=== PATIENT | female | born 1960 | race Caucasian/White ===

== ENCOUNTER 2016-07-09 14:49 | Emergency (ER) | payer SELFPAY ==
[~2016-07-09] VITALS: Ht 162.6 cm; Wt 75.0 kg
[~2016-07-09 14:49] MED LIST: LEVA500T PO; LISI10TA3 PO; PRED20 PO; VENTAER INH
[2016-07-09 14:51] VITALS: BP 135/91; PULSE 90; RESP 16; TEMP 97.7; O2SAT 98
--- NOTE | 2016-07-09 16:40 | RADRPT ---
EXAM DATE/TIME: 07/09/2016 16:20 [facility] COMPARISON: CHEST PA & LAT, May 16, 2016, 14:45. INDICATIONS : Chest pains, SOB with a productive cough x 7 days. MEDICAL HISTORY : Chronic obstructive pulmonary disease. SURGICAL HISTORY : Lung Biopsy ENCOUNTER: Initial ACUITY: 1 day PAIN SCORE: 0/10 LOCATION: Bilateral chest FINDINGS: A single view of the chest demonstrates the lungs to be symmetrically aerated without evidence of mas s, infiltrate or effusion. The cardiomediastinal contours are unremarkable. Osseous structures are intact. There is an old, healed fracture right posterior seventh rib. CONCLUSION: 1. No acute cardiopulmonary findings. Chaparro Pulliam MD on July 09, 2016 at 16:37 Board Certified Radiologist. This report was verified electronically.
[2016-07-09 16:52] LABS: AUTOMATED NEUTROPHIL # 4.5 TH/MM3 (1.8-7.7); BASOPHIL # 0.1 TH/MM3 (0-0.2); BASOPHIL % 0.9 % (0.0-2.0); EOSINOPHIL # 0.2 TH/MM3 (0-0.4); EOSINOPHIL % 3.4 % (0.0-4.0); HEMATOCRIT 35.1 % (35.0-46.0); HEMO FLAGS DIFF FINAL; LYMPH % 20.7 % (9.0-44.0); LYMPHOCYTE # 1.4 TH/MM3 (1.0-4.8); MEAN CELL VOLUME 80.2 FL (80.0-100.0); MEAN CORPUSCULAR HGB CONC 33.7 % (32.0-36.0); MONO % 8.2 % (0.0-8.0); NEUT % 66.8 % (16.0-70.0); PLATELET COUNT 258 TH/MM3 (150-450); RED BLOOD COUNT 4.37 MIL/MM3 (4.00-5.30); RED CELL DISTRIBUTION WIDTH 15.5 % (11.6-17.2); WHITE BLOOD COUNT 6.8 TH/MM3 (4.0-11.0)
[2016-07-09 17:16] LABS: ANION GAP 7 MEQ/L (5-15); BICARBONATE 26.3 MEQ/L (21.0-32.0); BLOOD UREA NITROGEN 10 MG/DL (7-18); CHLORIDE 105 MEQ/L (98-107); GLOMERULAR FILTRATION RATE 55 ML/MIN (>89); POTASSIUM 3.8 MEQ/L (3.5-5.1); SODIUM (NA) 138 MEQ/L (136-145)
[2016-07-09 17:20] LABS: CREATINE KINASE 180 U/L (26-192)
[2016-07-09 17:33] LABS: CKMB 1.6 NG/ML (0.5-3.6)
--- NOTE | 2016-07-10 15:33 | EKG ---
Date Performed: 07/09/2016 Time Performed: 15:45:13 PTAGE: 55 years EKG: Sinus rhythm BORDERLINE LEFT AXIS DEVIATION NONSPECIFIC T-WAVE ABNORMALITY WHEN COMPARED TO PRIOR TRACING PATIENT IS NO LONGER TACHYCARDIC. BORDERLINE ECG PREVIOUS TRACING : 05/16/2016 13.45 DOCTOR: Merary Brand Interpretating Date/Time 07/10/2016 15:31:52
== END 2016-07-09 17:30 | disposition left against medical advice (07) ==
LOC: NED 14:49
DX: R07.89 Other chest pain (principal); R06.02 Shortness of breath; Z53.21 Procedure and treatment not carried out due to patient leaving prior to being seen by health care provider
CPT/HCPCS: 71010; 80048; 82550; 82552; 84484; 85025; 93005; 99281

== ENCOUNTER 2016-08-30 12:06 | Emergency (ER) | payer SELFPAY ==
[~2016-08-30] VITALS: Ht 160 cm; Wt 72.0 kg
[2016-08-30 12:08] VITALS: BP 138/90; PULSE 118; RESP 24; TEMP 98; O2SAT 94
[2016-08-30] MEDS ORDERED: SODIUM CHLOR 0.9% 1000 ML INJ 1,000 ML IV SCH (12:35)
[2016-08-30] MEDS ORDERED: TOPR25TA PO ×3 (12:37→15:14)
[2016-08-30] MEDS ORDERED: ONDANSETRON HCL 4 MG/2 ML VIAL IVP ONE (12:45)
[2016-08-30] MEDS ORDERED: methylPREDNISolone SOD SUCC 125 MG/2 ML VIAL IVP ONE (12:45)
[2016-08-30] MEDS ORDERED: KETOROLAC TROMETHAMINE 30 MG/ML (IVP) VIAL IVP ONE (12:45)
[2016-08-30] MEDS ORDERED: RESP: ALBUTEROL 2.5 MG/3 ML NEB (SCH) INH ONE (12:45)
--- NOTE | 2016-08-30 13:19 | RADRPT ---
EXAM DATE/TIME: 08/30/2016 13:00 [facility] COMPARISON: CHEST SINGLE AP, July 09, 2016, 16:20. INDICATIONS : Short of Breath, Chest Pain. MEDICAL HISTORY : Chronic obstructive pulmonary disease. SURGICAL HISTORY : Bilateral Lung Biopsy. ENCOUNTER: Initial ACUITY: 2 days PAIN SCORE: 9/10 LOCATION: Bilateral chest FINDINGS: A single view of the chest demonstrates the lungs to be symmetrically aerated without evidence of mas s, infiltrate or effusion. The cardiomediastinal contours are unremarkable. Osseous structures are intact. CONCLUSION: No evidence of acute cardiopulmonary disease. Deon Celaya MD on August 30, 2016 at 13:18 Board Certified Radiologist. This report was verified electronically.
--- NOTE | 2016-08-30 13:24 | PD ---
HPI Chief Complaint: Chest Pain Time Seen by Provider: 13:20 Travel History International Travel<30 days: No Contact w/Intl Traveler<30days: No History of Present Illness HPI 55-year-old female that presents to the ED for evaluation of multiple complaints. Per patient her complaint is that she has some left-sided chest pain, shortness of breath, cough and runny nose as well as flank pain from her "kidneys " any urinary symptoms. Patient has a chronic history of COPD. Per patient she's been using her inhalers with minimal relief. The patient was getting her was that her chest discomfort was more severe than usual. She denies any sick contacts but states that she herself feels weak and tired. Per patient she also has a headache from the coughing. Cough is productive. She reports that she isn't having back pain for the past 2 days which gets worse when she coughs but she believes that she might have a urinary tract infection as she is urinating more than usual. Some dysuria. She states that the pain on the back is 7 out of 10. The pain in the chest is 8 out of 10. Pain on the head is 8 out of 10 and feels like a dull headache. She states that she did a brain tumor before coming. She denies any recent travel. No recent injury. Takes no control. Has not seen anybody for this. Denies any nausea or vomiting. No abdominal pain. No bowel movement issues. PFSH Past Medical History Hx Anticoagulant Therapy: Yes (ASA) Asthma: Yes Anxiety: Yes Heart Rhythm Problems: Yes (HEART MURMUR) Cancer: No Cardiac Catheterization: No Cardiovascular Problems: Yes High Cholesterol: Yes Chest Pain: Yes Congestive Heart Failure: No COPD: Yes Diabetes: No Diminished Hearing: No Endocrine: No Gastrointestinal Disorders: Yes GERD: Yes Hypertension: Yes Implanted Vascular Access Dvce: No Musculoskeletal: Yes Neurologic: No Reproductive: No Respiratory: Yes (COPD) Pneumonia: Yes Influenza Vaccination: No ?: Not Menopausal: Yes : 3 Para: 3 Tubal Ligation: Yes Past Surgical History Coronary Artery Bypass Graft: No Gynecologic Surgery: Yes (TUBAL LIGATION) Other Surgery: Yes (BRONCH WASHING AND LUNG BIOPSY) Social History Alcohol Use: Yes (Rarely) Tobacco Use: No Substance Use: No Allergies-Medications (Allergen,Severity, Reaction): Coded Allergies: Codeine (Verified Allergy, Severe, Nausea/Vomiting, 11/12/16) Reported Meds & Prescriptions Reported Meds & Active Scripts Active Cipro (Ciprofloxacin HCl) 500 Mg Tab 500 Mg PO BID 10 Days Prednisone 20 Mg Tab 20 Mg PO BID Ventolin Hfa 18 GM Inh (Albuterol Sulfate) 90 Mcg/Act Aer 2 Puff INH Q4-6H PRN Prednisone 20 Mg Tab 40 Mg PO DAILY 5 Days Review of Systems General / Constitutional: Positive: Chills, No: Fever, Weight Gain, Weight Loss, Other Eyes: No: Diploplia, Blurred Vision, Photophobia, Drainage, Redness, Foreign Body Sensation, Pain, Tearing, Blind Spots, Visual changes, Blindness, Other HENT: Positive: Headaches, Rhinitis, Congestion, No: Vertigo, Lightheadedness , Sore Throat, Rhinorrhea, Nosebleed, Neck Stiffness, Neck Pain, Masses, Gingival Bleeding, Dental Difficulties, Ear Discharge, Earache, Other Cardiovascular: Positive: Chest Pain or Discomfort, No: Palpitations, Irregular Rhythm, Tachycardia, Diaphoresis, Syncope, Dyspnea on exertion, Varicosities, Edema, Cyanosis, Varicosities, Phlebitis, Claudication, Other Respiratory: Positive: Cough, Shortness of Breath, Wheezing, No: Sneezing, Orthopnea, Hemoptysis, Stridor, Night Sweats, Pleuritic Pain, Other Gastrointestinal: No: Nausea, Vomiting, Diarrhea, Abdominal Pain, Hematemesis, Hematochezia, Constipation, Changes in Bowel Habits, Indigestion, Dysphagia, Loss of Appetite, Other Genitourinary: Positive: Urgency, Frequency, Flank Pain, No: Dysuria, Nocturia , Hematuria, Decreased Urinary Output, Oliguria, Hesitancy, Dribbling, Incontinence, Pelvic Pain, Dyspareunia, Discharge, Dysmenorrhea, Menorrhagia, Metorrhagia, Vaginal Bleeding, Other Musculoskeletal: Positive: Pain, No: Myalgias, Arthralgias, Limited ROM, Weakness, Cramping, Edema, Atrophy, Other Skin: No Rash, No Itching, No Dryness, No Lumps, No Hives, No Change in Pigmentation, No Change in nails, No Alopecia, No Lesions, No Breast Lumps, No Breast Tenderness, No Breast Swelling, No Other Neurologic: No: Weakness, Dizziness, Syncope, Focal Abnormalities, Coordination Problem, Tremor, Ataxia, Headache, Change in Mentation, Slurred Speech, Paresthesia, Incontinence, Seizures, Sensory Disturbance, Other Psychiatric: No: Anxiety, Depression, Suicidal Ideations, Disorder of Thought, Mood Disorder, Substance Abuse, Homicidal Ideation, Other Endocrine: No: Heat Intolerance, Cold Intolerance, Polyuria, Polydipsia, Other Hematologic/Lymphatic: No: Easy Bruising, Lymph Node Enlargement, Other Physical Exam Narrative GENERAL: SKIN: Warm and dry. HEAD: Atraumatic. Normocephalic. EYES: Pupils equal and round 4 mm reactive to light and accommodation. No scleral icterus. No injection or drainage. ENT: No nasal bleeding or discharge. Mucous membranes pink and moist. Tongue is midline. No uvula deviation. No cervical lymphadenopathy noted. No meningeal signs noted. Nostrils are patent bilaterally. Clear mucus noted in the nostrils. No sinus pain noted. TMs are clear with no sign of infection or perforation. No mastoid tenderness. NECK: Trachea midline. No JVD. CARDIOVASCULAR: Regular rate and rhythm. No murmurs, S3, S4. RESPIRATORY: No accessory muscle use. Clear to auscultation. Breath sounds equal bilaterally. GASTROINTESTINAL: Abdomen soft, non-tender, nondistended. Hepatic and splenic margins not palpable. MUSCULOSKELETAL: Extremities without clubbing, cyanosis, or edema. No obvious deformities. Full range of motion of the upper and lower extremities bilaterally with no pain. Ambulatory. No obvious CVA tenderness. NEUROLOGICAL: Awake and alert. No obvious cranial nerve deficits. Motor grossly within normal limits. Five out of 5 muscle strength in the arms and legs. Normal speech. PSYCHIATRIC: Appropriate mood and affect; insight and judgment normal. Data Data Last Documented VS Vital Signs Date Time Temp Pulse Resp B/P Pulse Ox O2 Delivery O2 Flow Rate FiO2 08/30/16 12:08 98.0 118 24 138/90 94 Room Air Orders Electrocardiogram (08/30/16 ) Electrocardiogram (08/30/16 12:35) Complete Blood Count With Diff (08/30/16 12:35) Comprehensive Metabolic Panel (08/30/16 12:35) Ckmb (Isoenzyme) Profile (08/30/16 12:35) Troponin I (08/30/16 12:35) Blood Culture (08/30/16 12:35) Lipase (08/30/16 12:35) Urinalysis - C+S If Indicated (08/30/16 12:35) Thyroid Stimulating Hormone (08/30/16 12:35) Influenzae A/B Antigen (08/30/16 12:35) Chest, Single Ap (08/30/16 12:35) Iv Access Insert/Monitor (08/30/16 12:35) Ecg Monitoring (08/30/16 12:35) Oximetry (08/30/16 12:35) Ondansetron Inj (Zofran Inj) (08/30/16 12:45) Sodium Chlor 0.9% 1000 Ml Inj (Ns 1000 M (08/30/16 12:35) Ketorolac Inj (Toradol Inj) (08/30/16 12:45) Methylprednisolone So Succ Inj (Solumedr (08/30/16 12:45) Albuterol Neb (Albuterol Neb) (08/30/16 12:45) Urine Culture (08/30/16 13:07) Ceftriaxone Inj (Rocephin Inj) (08/30/16 14:00) CKMB (08/30/16 12:45) CKMB% (08/30/16 12:45) Aspirin (Aspirin) (08/30/16 14:30) Labs Laboratory Tests Test 08/30/16 08/30/16 12:45 13:07 White Blood Count 10.4 TH/MM3 Red Blood Count 4.47 MIL/MM3 Hemoglobin 12.0 GM/DL Hematocrit 36.0 % Mean Corpuscular Volume 80.5 FL Mean Corpuscular Hemoglobin 26.8 PG Mean Corpuscular Hemoglobin 33.3 % Concent Red Cell Distribution Width 15.5 % Platelet Count 253 TH/MM3 Mean Platelet Volume 9.1 FL Neutrophils (%) (Auto) 73.7 % Lymphocytes (%) (Auto) 13.7 % Monocytes (%) (Auto) 11.6 % Eosinophils (%) (Auto) 0.7 % Basophils (%) (Auto) 0.3 % Neutrophils # (Auto) 7.7 TH/MM3 Lymphocytes # (Auto) 1.4 TH/MM3 Monocytes # (Auto) 1.2 TH/MM3 Eosinophils # (Auto) 0.1 TH/MM3 Basophils # (Auto) 0.0 TH/MM3 CBC Comment DIFF FINAL Differential Comment Sodium Level 138 MEQ/L Potassium Level 4.1 MEQ/L Chloride Level 103 MEQ/L Carbon Dioxide Level 26.1 MEQ/L Anion Gap 9 MEQ/L Blood Urea Nitrogen 13 MG/DL Creatinine 1.29 MG/DL Estimat Glomerular Filtration 43 ML/MIN Rate Random Glucose 98 MG/DL Calcium Level 8.7 MG/DL Total Bilirubin 0.4 MG/DL Aspartate Amino Transf 46 U/L (AST/SGOT) Alanine Aminotransferase 56 U/L (ALT/SGPT) Alkaline Phosphatase 135 U/L Total Creatine Kinase 101 U/L Creatine Kinase MB LESS THAN 0.5 NG/ML Troponin I LESS THAN 0.02 NG/ML Total Protein 8.6 GM/DL Albumin 3.0 GM/DL Lipase 119 U/L Thyroid Stimulating Hormone 0.608 uIU/ML 3rd Gen Urine Color DARK-BROWN Urine Turbidity HAZY Urine pH 7.5 Urine Specific [place] 1.012 Urine Protein 30 mg/dL Urine Glucose (UA) NEG mg/dL Urine Ketones NEG mg/dL Urine Occult Blood NEG Urine Nitrite POS Urine Bilirubin NEG Urine Urobilinogen 2.0 MG/DL Urine Leukocyte Esterase MOD Urine RBC 2 /hpf Urine WBC 27 /hpf Urine Squamous Epithelial 2 /hpf Cells Urine Bacteria MANY /hpf Microscopic Urinalysis Comment CULTURE INDICATED MDM Medical Decision Making Medical Screen Exam Complete: Yes Emergency Medical Condition: Yes Medical Record Reviewed: Yes Interpretation(s) CBC & BMP Diagram 08/30/16 12:45 LFT slightly elevated lipase within normal limits. Chest x-ray showed no sign of pneumonia or mass. EKG shows sinus tachycardic rhythm with no sign of acute ischemia read by me and attending. UA shows signs of UTI with nitrates, leukocytes trace and WBCs. Differential Diagnosis COPD exacerbation versus chest pain versus bronchitis versus URI versus UTI versus dehydration versus pneumonia versus influenza Narrative Course 55-year-old female that presents to the ED for evaluation of chest pain, shortness of breath, flank pain and possible UTI. Patient was properly examined and was found to have signs and symptoms of unclear etiology. Patient does have a history of COPD exacerbation. Previous bacteremia. At this time we 'll do labs and imaging. Patient was given breathing treatment as well as Toradol and fluids IV. Labs and imaging showed no sign of acute distress. Patient did have a UTI on the urine. Chest x-ray and shortness of pneumonia. Troponin and EKG were essentially unremarkable. Patient does have a stress test done about 5 months ago in April of last year which was negative. patient was evaluated by my attending Dr Iyer who evaluated the patient and recommends chest pain center admission secondary to her chest discomfort and risk factors, including age, HTN and noncompliance. Patient still tachycardic likely secondary to albuterol. Patient told of this and does not want to be admitted, she rather go home. She understands that if anything worsens she is to come back. AMA: The risks of leaving against medical advice without further evaluation treatment were discussed with the patient. These risks include cardiac dysfunction, cardiac dysrhythmia, possible heart attack, possible stroke or . The patient indicated understanding of these risks and appeared to have the capacity to make this decision. Patient found to have UTI. She was given ceftriaxone. As she does have a UTI I will treat this and her exacerbation. Given cipro, prednisone and albuterol and refill of her BP med. She undertands reasons to come back. See ED if worst. Procedures EKG Prior to Arrival: No Sepsis Criteria SIRS Criteria (2 or more): Heart rate over 90 Diagnosis Primary Impression: Chest pain Qualified Code: R07.9 - Chest pain, unspecified type Additional Impressions: UTI (urinary tract infection) Qualified Code: N30.00 - Acute cystitis without hematuria COPD (chronic obstructive pulmonary disease) Qualified Code: J42 - Chronic bronchitis, unspecified chronic bronchitis type Patient Instructions: General Instructions Additional Instructions: Motrin and Tylenol for pain and fever. You can use [id number] antihistamine as well as well as Mucinex as needed for runny nose and congestion. Cough drops for cough as needed. Drink plenty of fluids. Follow-up with PCP. See ED for worsening symptoms. Med/Other Pt SpecificInfo: Prescription(s) given Scripts Ciprofloxacin (Cipro)500 Mg [id number] Mg PO BID 10 Days Prov:Fatemeh Iyer MD 08/30/16 Prednisone 20 Mg Tab20 Mg PO BID #10 TAB Prov:Fatemeh Iyer MD 08/30/16 Albuterol 18 GM Inh (Ventolin Hfa 18 GM Inh)90 Mcg/Act Aer2 Puff INH Q4-6H PRN ( SHORTNESS OF BREATH) #1 INHALER Ref 0 Prov:Fatemeh Iyer MD 08/30/16 Disposition: 07 AGAINST MEDICAL ADVICE Condition: Stable Richard Malave Aug 30, 2016 13:24
[2016-08-30 13:32] LABS: AUTOMATED NEUTROPHIL # 7.7 TH/MM3 (1.8-7.7); BASOPHIL % 0.3 % (0.0-2.0); EOSINOPHIL # 0.1 TH/MM3 (0-0.4); EOSINOPHIL % 0.7 % (0.0-4.0); HEMO FLAGS DIFF FINAL; LYMPH % 13.7 % (9.0-44.0); LYMPHOCYTE # 1.4 TH/MM3 (1.0-4.8); MEAN CELL VOLUME 80.5 FL (80.0-100.0); MEAN CORPUSCULAR HEMOGLOBIN 26.8 PG (27.0-34.0); MEAN CORPUSCULAR HGB CONC 33.3 % (32.0-36.0); MONO % 11.6 % (0.0-8.0); NEUT % 73.7 % (16.0-70.0); PLATELET COUNT 253 TH/MM3 (150-450); RED BLOOD COUNT 4.47 MIL/MM3 (4.00-5.30); RED CELL DISTRIBUTION WIDTH 15.5 % (11.6-17.2); WHITE BLOOD COUNT 10.4 TH/MM3 (4.0-11.0)
[2016-08-30 13:44] LABS: BACTERIA, URINE MANY /hpf; BLOOD, URINE NEG (NEG); COMMENT (UR) CULTURE INDICATED; CULTURE IF INDICATED CULTURE INDICATED; GLUCOSE,URINE NEG (NEG); KETONE, URINE NEG (NEG); PH, URINE 7.5 (5.0-8.5); SQUAMOUS EPITHELIAL CELL URINE 2 /hpf (0-5)
[2016-08-30 13:46] LABS: NITRITE,URINE POS (NEG); URINE COLOR DARK-BROWN (YELLW/STRAW)
[2016-08-30 13:49] LABS: ALT (GPT) 56 U/L (10-53); ANION GAP 9 MEQ/L (5-15); AST (GOT) 46 U/L (15-37); BICARBONATE 26.1 MEQ/L (21.0-32.0); BLOOD UREA NITROGEN 13 MG/DL (7-18); CHLORIDE 103 MEQ/L (98-107); GLOMERULAR FILTRATION RATE 43 ML/MIN (>89); POTASSIUM 4.1 MEQ/L (3.5-5.1); SODIUM (NA) 138 MEQ/L (136-145)
[2016-08-30] MEDS ORDERED: cefTRIAXone INJ 1,000 MG in SODIUM CHLORIDE 0.9% INJ 100 ML IV ONE (14:00)
[2016-08-30 14:03] LABS: ALKALINE PHOSPHATASE 135 U/L (45-117); CREATINE KINASE 101 U/L (26-192); TOTAL BILIRUBIN ADULT 0.4 MG/DL (0.2-1.0)
[2016-08-30] MEDS ORDERED: CIPR-9 PO ×2 (14:10→14:58)
[2016-08-30] MEDS ORDERED: PRED20 PO ×2 (14:10→14:58)
[2016-08-30] MEDS ORDERED: VENTAER INH ×2 (14:10→14:58)
[2016-08-30] MEDS ORDERED: DICL75TA PO (14:10)
[2016-08-30 14:15] LABS: CKMB LESS THAN 0.5 NG/ML (0.5-3.6)
[2016-08-30] MEDS ORDERED: ASPIRIN 325 MG TAB PO ONE (14:30)
--- NOTE | 2016-08-31 13:36 | EKG ---
Date Performed: 08/30/2016 Time Performed: 12:28:41 PTAGE: 55 years EKG: SINUS TACHYCARDIA BORDERLINE LEFT AXIS DEVIATION ABNORMAL RHYTHM ECG Compared to prior trac ing no significant change PREVIOUS TRACING : 07/09/2016 15.45 DOCTOR: Juan Blanco Interpretating Date/Time 08/31/2016 13:35:19
== END 2016-08-30 15:31 | disposition left against medical advice (07) ==
LOC: NEPE 12:06 → UNDOADMOB 14:30 → NEDA 14:30 → UNDODISOB 15:31
DX: R07.9 Chest pain, unspecified (principal); N30.00 Acute cystitis without hematuria; B96.20 Unspecified Escherichia coli [E. coli] as the cause of diseases classified elsewhere; J44.9 Chronic obstructive pulmonary disease, unspecified; J45.909 Unspecified asthma, uncomplicated; I10 Essential (primary) hypertension
CPT/HCPCS: 71010; 80053; 81001; 82550; 82552; 83690; 84443; 84484; 85025; 87040; 87077; 87086; 87186; 87205; 87804; 93005; 94664; 96374; 96375; 99285; J0696; J1885; J2405; J2930; J7030; J7613

== ENCOUNTER 2016-09-07 11:40 | Inpatient (IN) | payer SELFPAY ==
[~2016-09-07] VITALS: Ht 162.6 cm; Wt 78.8 kg
[~2016-09-07 11:40] MED LIST changes: +CIPR-9 PO; -LEVA500T PO; -LISI10TA3 PO; +TOPR25TA PO
[2016-09-07 11:43] VITALS: BP 134/91; PULSE 92; RESP 20; TEMP 97.7; O2SAT 97
--- NOTE | 2016-09-07 12:52 | PD ---
HPI Chief Complaint: Abnormal Results Time Seen by Provider: 12:49 Travel History International Travel<30 days: No Contact w/Intl Traveler<30days: No Traveled to known affect area: No History of Present Illness HPI Patient is a 55-year-old female presenting to the emergency department after being notified that she had positive blood cultures. Patient was notified yesterday. She reports that she had a fever of 101 last night, she she use BC powder and Advil last night but has not taken any this morning. She continues have a cough and occasional shortness of breath however she does have a history of COPD. Patient reports compliance with antibiotic regimen as well as inhalers. She reports pleuritic anterior chest pain as well as left upper back pain. She has no other complaints at this time. PFSH Past Medical History Hx Anticoagulant Therapy: Yes (ASA) Asthma: Yes Anxiety: Yes Heart Rhythm Problems: Yes (HEART MURMUR) Cancer: No Cardiac Catheterization: No Cardiovascular Problems: Yes High Cholesterol: Yes Chest Pain: Yes Congestive Heart Failure: No COPD: Yes Diabetes: No Diminished Hearing: No Endocrine: No Gastrointestinal Disorders: Yes GERD: Yes Hypertension: Yes Implanted Vascular Access Dvce: No Musculoskeletal: Yes Neurologic: No Reproductive: No Respiratory: Yes (COPD) Pneumonia: Yes Menopausal: Yes : 3 Para: 3 Tubal Ligation: Yes Past Surgical History Coronary Artery Bypass Graft: No Gynecologic Surgery: Yes (TUBAL LIGATION) Other Surgery: Yes (BRONCH WASHING AND LUNG BIOPSY) Social History Alcohol Use: Yes (Rarely) Tobacco Use: No Substance Use: No Allergies-Medications (Allergen,Severity, Reaction): Coded Allergies: Codeine (Verified Allergy, Severe, Nausea/Vomiting, 09/07/16) Reported Meds & Prescriptions Reported Meds & Active Scripts Active Toprol XL (Metoprolol Succinate) 25 Mg Tab 25 Mg PO DAILY Reported Ciprofloxacin (Ciprofloxacin HCl) 500 Mg Tab 500 Mg PO BID Review of Systems Except as stated in HPI: all other systems reviewed are Neg General / Constitutional: Positive: Fever, Chills HENT: Positive: Headaches Respiratory: Positive: Cough, Shortness of Breath, Pleuritic Pain Gastrointestinal: No: Nausea, Vomiting, Abdominal Pain Genitourinary: No: Dysuria Musculoskeletal: No: Myalgias Physical Exam Narrative GENERAL: Well-developed, well-nourished, alert female. Resting comfortably in no acute distress. SKIN: Warm and dry. HEAD: Atraumatic. Normocephalic. EYES: Pupils equal and round. No scleral icterus. No injection or drainage. ENT: No nasal bleeding or discharge. Mucous membranes pink and moist. NECK: Trachea midline. No JVD. CARDIOVASCULAR: Regular rate and rhythm. No murmur appreciated. RESPIRATORY: No accessory muscle use. Clear to auscultation. Breath sounds equal bilaterally. GASTROINTESTINAL: Abdomen soft, non-tender, nondistended. Hepatic and splenic margins not palpable. MUSCULOSKELETAL: No obvious deformities. No clubbing. No cyanosis. No edema. Tenderness palpation on left anterior/midsternal area on chest wall, tenderness to palpation on left upper back just medial to the left scapula. NEUROLOGICAL: Awake and alert. No obvious cranial nerve deficits. Motor grossly within normal limits. Normal speech. PSYCHIATRIC: Appropriate mood and affect; insight and judgment normal. Data Data Last Documented VS Vital Signs Date Time Temp Pulse Resp B/P Pulse Ox O2 Delivery O2 Flow Rate FiO2 09/07/16 15:27 98.2 89 20 130/84 99 Room Air Orders Electrocardiogram (09/07/16 13:19) Complete Blood Count With Diff (09/07/16 13:19) Comprehensive Metabolic Panel (09/07/16 13:19) Prothrombin Time / Inr (Pt) (09/07/16 13:19) Act Partial Throm Time (Ptt) (09/07/16 13:19) Lactic Acid Sepsis Protocol (09/07/16 13:19) Magnesium (Mg) (09/07/16 13:19) Ckmb (Isoenzyme) Profile (09/07/16 13:19) Troponin I (09/07/16 13:19) Urinalysis - C+S If Indicated (09/07/16 13:19) Blood Culture (09/07/16 13:19) Chest, Pa & Lat (09/07/16 ) CKMB (09/07/16 12:37) CKMB% (09/07/16 12:37) Piperacil-Tazo 4.5 Gm Premix (Zosyn 4.5 (09/07/16 15:45) Sodium Chlor 0.9% 1000 Ml Inj (Ns 1000 M (09/07/16 15:41) Acetaminophen (Tylenol) (09/07/16 16:15) Admit Order (Ed Use Only) (09/07/16 16:10) Labs Laboratory Tests Test 09/07/16 09/07/16 12:37 13:37 White Blood Count 8.1 TH/MM3 Red Blood Count 4.48 MIL/MM3 Hemoglobin 12.0 GM/DL Hematocrit 36.0 % Mean Corpuscular Volume 80.4 FL Mean Corpuscular Hemoglobin 26.7 PG Mean Corpuscular Hemoglobin 33.2 % Concent Red Cell Distribution Width 15.0 % Platelet Count 369 TH/MM3 Mean Platelet Volume 8.6 FL Neutrophils (%) (Auto) 62.1 % Lymphocytes (%) (Auto) 27.2 % Monocytes (%) (Auto) 6.7 % Eosinophils (%) (Auto) 3.3 % Basophils (%) (Auto) 0.7 % Neutrophils # (Auto) 5.0 TH/MM3 Lymphocytes # (Auto) 2.2 TH/MM3 Monocytes # (Auto) 0.5 TH/MM3 Eosinophils # (Auto) 0.3 TH/MM3 Basophils # (Auto) 0.1 TH/MM3 CBC Comment DIFF FINAL Differential Comment Prothrombin Time 11.1 SEC Prothromb Time International 1.0 RATIO Ratio Activated Partial 27.7 SEC Thromboplast Time Sodium Level 140 MEQ/L Potassium Level 3.7 MEQ/L Chloride Level 103 MEQ/L Carbon Dioxide Level 29.4 MEQ/L Anion Gap 8 MEQ/L Blood Urea Nitrogen 10 MG/DL Creatinine 1.15 MG/DL Estimat Glomerular Filtration 49 ML/MIN Rate Random Glucose 102 MG/DL Lactic Acid Level 1.1 mmol/L Calcium Level 8.8 MG/DL Magnesium Level 2.3 MG/DL Total Bilirubin 0.2 MG/DL Aspartate Amino Transf 15 U/L (AST/SGOT) Alanine Aminotransferase 29 U/L (ALT/SGPT) Alkaline Phosphatase 96 U/L Total Creatine Kinase 156 U/L Creatine Kinase MB 1.0 NG/ML Troponin I LESS THAN 0.02 NG/ML Total Protein 8.6 GM/DL Albumin 3.4 GM/DL Urine Color LIGHT-YELLOW Urine Turbidity CLEAR Urine pH 6.0 Urine Specific [place] 1.008 Urine Protein NEG mg/dL Urine Glucose (UA) NEG mg/dL Urine Ketones NEG mg/dL Urine Occult Blood NEG Urine Nitrite NEG Urine Bilirubin NEG Urine Urobilinogen LESS THAN 2.0 MG/DL Urine Leukocyte Esterase NEG Urine RBC LESS THAN 1 /hpf Urine WBC 2 /hpf Urine Squamous Epithelial 3 /hpf Cells Microscopic Urinalysis Comment CATH-CULT NOT IND MDM Medical Decision Making Medical Screen Exam Complete: Yes Emergency Medical Condition: Yes Interpretation(s) Vital Signs Date Time Temp Pulse Resp B/P Pulse Ox O2 Delivery O2 Flow Rate FiO2 09/07/16 11:43 97.7 92 20 134/91 97 Room Air Differential Diagnosis Sepsis versus pneumonia versus COPD exacerbation versus musculoskeletal pain versus other Narrative Course Patient's 55-year-old female presenting to emergency department after being notified that she had positive blood cultures. Patient is afebrile, her vital signs are stable, she is well oxygenated on room air. She has been compliant with previously prescribed antibiotic therapy. She has not taken any antipyretics this morning. Labs and EKG ordered. Workup initiated in triage,. Patient will be transferred to provide her with a medical bed is available. Batsheva Quick Sep 07, 2016 12:52
[2016-09-07 13:57] LABS: BASOPHIL # 0.1 TH/MM3 (0-0.2); BASOPHIL % 0.7 % (0.0-2.0); EOSINOPHIL # 0.3 TH/MM3 (0-0.4); EOSINOPHIL % 3.3 % (0.0-4.0); HEMO FLAGS DIFF FINAL; LYMPH % 27.2 % (9.0-44.0); LYMPHOCYTE # 2.2 TH/MM3 (1.0-4.8); MEAN CELL VOLUME 80.4 FL (80.0-100.0); MEAN CORPUSCULAR HEMOGLOBIN 26.7 PG (27.0-34.0); MEAN CORPUSCULAR HGB CONC 33.2 % (32.0-36.0); MONO % 6.7 % (0.0-8.0); NEUT % 62.1 % (16.0-70.0); PLATELET COUNT 369 TH/MM3 (150-450); RED BLOOD COUNT 4.48 MIL/MM3 (4.00-5.30); WHITE BLOOD COUNT 8.1 TH/MM3 (4.0-11.0)
[2016-09-07 14:01] LABS: BLOOD, URINE NEG (NEG); GLUCOSE,URINE NEG (NEG); KETONE, URINE NEG (NEG); NITRITE,URINE NEG (NEG); SQUAMOUS EPITHELIAL CELL URINE 3 /hpf (0-5); URINE COLOR LIGHT-YELLOW (YELLW/STRAW)
[2016-09-07 14:04] LABS: COMMENT (UR) CATH-CULT NOT IND; CULTURE IF INDICATED CATH CULTURE NOT IND
[2016-09-07 14:11] LABS: APTT (PATIENT) 27.7 SEC (24.3-30.1); PROTHROMBIN TIME - PATIENT 11.1 SEC (9.8-11.6)
[2016-09-07 14:21] LABS: ALT (GPT) 29 U/L (10-53); ANION GAP 8 MEQ/L (5-15); AST (GOT) 15 U/L (15-37); BICARBONATE 29.4 MEQ/L (21.0-32.0); BLOOD UREA NITROGEN 10 MG/DL (7-18); CHLORIDE 103 MEQ/L (98-107); GLOMERULAR FILTRATION RATE 49 ML/MIN (>89); MAGNESIUM 2.3 MG/DL (1.5-2.5); POTASSIUM 3.7 MEQ/L (3.5-5.1); SODIUM (NA) 140 MEQ/L (136-145)
[2016-09-07 14:24] LABS: ALKALINE PHOSPHATASE 96 U/L (45-117); CREATINE KINASE 156 U/L (26-192); TOTAL BILIRUBIN ADULT 0.2 MG/DL (0.2-1.0)
--- NOTE | 2016-09-07 14:45 | RADRPT ---
EXAM DATE/TIME: 09/07/2016 14:32 [facility] COMPARISON: CHEST PA & LAT, May 16, 2016, 14:45. INDICATIONS : Short of breath, chest pain. MEDICAL HISTORY : Chronic obstructive pulmonary disease. hx of bronchitis and pneumonia. SURGICAL HISTORY : None. ENCOUNTER: Initial ACUITY: 2 weeks PAIN SCORE: 8/10 LOCATION: Bilateral chest FINDINGS: PA and lateral views of the chest demonstrate a normal-sized cardiac silhouette. There is no effusion , consolidation, or pneumothorax. The bones and soft tissues demonstrate no acute abnormality. CONCLUSION: No acute cardiopulmonary abnormality is identified. Deon Garcia MD on September 07, 2016 at 14:42 Board Certified Radiologist. This report was verified electronically.
[2016-09-07 15:27] VITALS: BP 130/84; PULSE 89; RESP 20; TEMP 98.2; O2SAT 99
[2016-09-07] MEDS ORDERED: CIPR500T2 PO (15:30)
[2016-09-07] MEDS ORDERED: SODIUM CHLOR 0.9% 1000 ML INJ 1,000 ML IV SCH (15:41)
[2016-09-07] MEDS ORDERED: PIPERACIL-TAZO 4.5 GM PREMIX 100 ML IV ONE (15:45)
--- NOTE | 2016-09-07 15:49 | PD ---
Physical Exam Time Seen by Provider: 15:49 Narrative 55-year-old female with history of hypertension and COPD presents to the emergency department for evaluation of positive blood cultures. Patient seen by provider in triage are initiated workup. Patient was seen in our emergency department 8 days ago for cough with shortness of breath and left flank pain with dysuria. At that time she was noted to have a urinary tract infection and possible pneumonia and was treated with Cipro, steroids and inhalers. States that she has been taking the antibiotics as prescribed and using her inhalers. States that she has continued to have shortness of breath with mild productive cough and left mid upper back pain. States she has had fever, last fever was 101F last night. She also complains of having pleuritic left anterior chest pain aggravated with coughing. Denies any history of smoking. Denies body aches, chills, nausea, vomiting, lightheadedness, dizziness. Does not have a PCP. No other complaints. GENERAL: Well-nourished and well-developed pleasant female patient in no acute distress. SKIN: Warm and dry. HEAD: Normocephalic and atraumatic. EYES: No injection, drainage, or hyphema noted. PERRLA. EOMI. ENT: No nasal drainage noted. Oropharynx is clear. NECK: Supple and the trachea is midline. CARDIOVASCULAR: Regular rate and rhythm. RESPIRATORY: Coarse breath sounds bilaterally but no wheezing, rhonchi, crackles. No accessory muscle use. GASTROINTESTINAL: Abdomen is soft, non-tender, and nondistended. MUSCULOSKELETAL: No obvious deformities, swelling, cyanosis, or ecchymosis is present throughout the upper and lower extremities. Patient has full range of motion without any signs of neurovascular compromise. BACK: Mild left thoracic paraspinal muscle tenderness. No obvious deformities, bony point tenderness, or crepitus noted throughout the thoracic and lumbar vertebrae. NEUROLOGICAL: Awake, alert, and oriented. Normal speech and gait. Cranial nerves are grossly intact. Data Data Last Documented VS Vital Signs Date Time Temp Pulse Resp B/P Pulse Ox O2 Delivery O2 Flow Rate FiO2 09/07/16 15:27 98.2 89 20 130/84 99 Room Air Orders Electrocardiogram (09/07/16 13:19) Complete Blood Count With Diff (09/07/16 13:19) Comprehensive Metabolic Panel (09/07/16 13:19) Prothrombin Time / Inr (Pt) (3/6/17 13:19) Act Partial Throm Time (Ptt) (09/07/16 13:19) Lactic Acid Sepsis Protocol (09/07/16 13:19) Magnesium (Mg) (09/07/16 13:19) Ckmb (Isoenzyme) Profile (09/07/16 13:19) Troponin I (09/07/16 13:19) Urinalysis - C+S If Indicated (09/07/16 13:19) Blood Culture (09/07/16 13:19) Chest, Pa & Lat (09/07/16 ) CKMB (09/07/16 12:37) CKMB% (09/07/16 12:37) Piperacil-Tazo 4.5 Gm Premix (Zosyn 4.5 (09/07/16 15:45) Sodium Chlor 0.9% 1000 Ml Inj (Ns 1000 M (09/07/16 15:41) Acetaminophen (Tylenol) (09/07/16 16:15) Admit Order (Ed Use Only) (09/07/16 16:10) Labs Laboratory Tests Test 09/07/16 09/07/16 12:37 13:37 White Blood Count 8.1 TH/MM3 Red Blood Count 4.48 MIL/MM3 Hemoglobin 12.0 GM/DL Hematocrit 36.0 % Mean Corpuscular Volume 80.4 FL Mean Corpuscular Hemoglobin 26.7 PG Mean Corpuscular Hemoglobin 33.2 % Concent Red Cell Distribution Width 15.0 % Platelet Count 369 TH/MM3 Mean Platelet Volume 8.6 FL Neutrophils (%) (Auto) 62.1 % Lymphocytes (%) (Auto) 27.2 % Monocytes (%) (Auto) 6.7 % Eosinophils (%) (Auto) 3.3 % Basophils (%) (Auto) 0.7 % Neutrophils # (Auto) 5.0 TH/MM3 Lymphocytes # (Auto) 2.2 TH/MM3 Monocytes # (Auto) 0.5 TH/MM3 Eosinophils # (Auto) 0.3 TH/MM3 Basophils # (Auto) 0.1 TH/MM3 CBC Comment DIFF FINAL Differential Comment Prothrombin Time 11.1 SEC Prothromb Time International 1.0 RATIO Ratio Activated Partial 27.7 SEC Thromboplast Time Sodium Level 140 MEQ/L Potassium Level 3.7 MEQ/L Chloride Level 103 MEQ/L Carbon Dioxide Level 29.4 MEQ/L Anion Gap 8 MEQ/L Blood Urea Nitrogen 10 MG/DL Creatinine 1.15 MG/DL Estimat Glomerular Filtration 49 ML/MIN Rate Random Glucose 102 MG/DL Lactic Acid Level 1.1 mmol/L Calcium Level 8.8 MG/DL Magnesium Level 2.3 MG/DL Total Bilirubin 0.2 MG/DL Aspartate Amino Transf 15 U/L (AST/SGOT) Alanine Aminotransferase 29 U/L (ALT/SGPT) Alkaline Phosphatase 96 U/L Total Creatine Kinase 156 U/L Creatine Kinase MB 1.0 NG/ML Troponin I LESS THAN 0.02 NG/ML Total Protein 8.6 GM/DL Albumin 3.4 GM/DL Urine Color LIGHT-YELLOW Urine Turbidity CLEAR Urine pH 6.0 Urine Specific [place] 1.008 Urine Protein NEG mg/dL Urine Glucose (UA) NEG mg/dL Urine Ketones NEG mg/dL Urine Occult Blood NEG Urine Nitrite NEG Urine Bilirubin NEG Urine Urobilinogen LESS THAN 2.0 MG/DL Urine Leukocyte Esterase NEG Urine RBC LESS THAN 1 /hpf Urine WBC 2 /hpf Urine Squamous Epithelial 3 /hpf Cells Microscopic Urinalysis Comment CATH-CULT NOT IND MDM Supervised Visit with ANA: No Differential Diagnosis Bacteremia versus urinary tract infection versus pyelonephritis versus COPD exacerbation versus pneumonia Narrative Course 55-year-old female presents to the emergency department for evaluation of positive blood cultures. Patient is afebrile. She is slightly tachycardic initially with a heart rate of 92 bpm. Otherwise vital signs within normal limits. She is reporting a fever of 101F last night and states that her symptoms have not improved since she was last seen. She had 2 sets of positive blood cultures to 8 days ago growing out Escherichia coli. IV access is obtained, labs were drawn and sent. CBC is unremarkable. CMP shows mild renal insufficiency with a creatinine 1.15, GFR 49. Lactic acid is 1.1. I find troponin is less than 0.02. Coags are unremarkable. Urinalysis is unremarkable. Labs are all reassuring. The patient is still symptomatic and reporting fevers with 2 sets of positive blood cultures growing out Escherichia coli. She'll be admitted for IV antibiotics and repeat cultures. I discussed the case with my attending physician Dr. Rodriguez who is aware of the patients history, physical examination findings, and treatment plan. Sepsis Criteria SIRS Criteria (2 or more): Heart rate over 90 Physician Communication Physician Communication I spoke with Dr. Camacho [facility] who agrees to admit the patient to his service. Diagnosis Primary Impression: Bacteremia due to Escherichia coli Admitting Information Admitting Physician Requests: Admit Josefa Lombardi Sep 07, 2016 15:49
[2016-09-07] MEDS ORDERED: ACETAMINOPHEN 500 MG CPLT PO ONE (16:15)
[2016-09-07] MEDS ORDERED: ACETAMINOPHEN 325 MG TAB PO PRN (17:00)
[2016-09-07] MEDS ORDERED: ENOXAPARIN SODIUM 40 MG/0.4 ML SYRINGE SQ SCH (17:00)
[2016-09-07] MEDS ORDERED: NALOXONE HCL 0.4 MG/ML AMP IV PRN (17:00)
[2016-09-07] MEDS ORDERED: SODIUM CHLORIDE 0.9% FLUSH 5 ML FLUSH FLUSH PRN (17:00)
[2016-09-07] MEDS: PIPERACIL-TAZO 3.375 GM PREMIX 50 ML IV SCH ×2 (17:00→21:59)
[2016-09-07] MEDS ORDERED: ONDANSETRON HCL 4 MG/2 ML VIAL IVP PRN (17:00)
[2016-09-07] MEDS ORDERED: RESP: ALBUTEROL 2.5 MG/IPRATROPIUM 0.5 MG NEB (PRN) NEB (17:15)
[2016-09-07] MEDS ORDERED: methylPREDNISolone SOD SUCC 125 MG/2 ML VIAL IV PUSH ONE (17:15)
--- NOTE | 2016-09-07 17:26 | HHI.HP ---
[facility] No Primary Care Physician Admission Diagnosis Bacteremia Diagnoses: Chief Complaint: Positive blood culture Travel History International Travel<30 Days: No Contact w/Intl Traveler <30 Da: No Traveled to Known Affected Are: No Sepsis Criteria SIRS Criteria (2 or more): Heart rate over 90 History of Present Illness This is a 55-year-old female with past medical history of hypertension and COPD presents to the emergency department for evaluation of positive blood cultures. Patient was seen in our emergency department 8 days ago for cough with shortness of breath and left flank pain with dysuria. At that time she was noted to have a urinary tract infection and possible pneumonia and was treated with prescribed Cipro, steroids and inhalers. States that she has been taking the antibiotics as prescribed and using her inhalers. Patient reports she was having chills last week which have gotten better. Patient reports her urine continues to be strong smelling and she continues to have a left sided flank pain. Patient reports she was unable to afford the steroids. States that she has continued to have shortness of breath with continued cough productive of yellow/clear phlegm. States she had fever of 101F last night. She also complains of having pleuritic left anterior chest pain aggravated with coughing reproducible with palpation. Chest pain is not associated with shortness of breath diaphoresis and does not radiate. Review of Systems Except as stated in HPI: all other systems reviewed are Neg Past Family Social History Past Medical History hypertension, COPD and GERD Past Surgical History Tubal ligation and bronchoscopy with lung biopsy Reported Medications Toprol XL (Metoprolol Succinate) 25 Mg Tab 25 Mg PO DAILY Ciprofloxacin (Ciprofloxacin HCl) 500 Mg Tab 500 Mg PO BID Allergies: Coded Allergies: Codeine (Verified Allergy, Severe, Nausea/Vomiting, 09/07/16) Active Ordered Medications Current Medications Medications (Trade) Dose Ordered Sig/Reji Route Start Time Stop Time Status Last Admin (NS 1000 ml Inj) 1,000 ml @ 50 mls/hr Q20H IV 09/07/16 16:52 UNV (NS Flush) 2 ml UNSCH PRN FLUSH 09/07/16 17:00 UNV (NS Flush) 2 ml BID FLUSH 09/07/16 21:00 UNV (Tylenol) 650 mg Q4H PRN PO 09/07/16 17:00 UNV (Zofran Inj) 4 mg Q6H PRN IVP 09/07/16 17:00 UNV (Lovenox Inj) 40 mg Q24H SQ 09/07/16 17:00 UNV Naloxone HCl 0.4 mg 0.4 mg UNSCH PRN IV 09/07/16 17:00 UNV (Zosyn 3.375 Gm Premix) 50 ml @ 100 mls/hr Q6H IV 09/07/16 17:00 UNV (Toprol Xl) 25 mg DAILY PO 09/08/16 09:00 UNV Family History Mother had lung cancer was a smoker Brother at 47 segment [place] Sister at 34 secondary to breast cancer Social History Patient has been a lifelong nonsmoker Rarely uses EtOH approximally once every 6 months or so Denies illicit drug use Physical Exam Vital Signs Vital Signs Date Time Temp Pulse Resp B/P Pulse Ox O2 Delivery O2 Flow Rate FiO2 09/07/16 15:27 98.2 89 20 130/84 99 Room Air 09/07/16 11:43 97.7 92 20 134/91 97 Room Air Physical Exam GENERAL: This is a well-nourished, well-developed patient, in no apparent distress. SKIN: No rashes, ecchymoses or lesions. Cool and dry. HEAD: Atraumatic. Normocephalic. No temporal or scalp tenderness. EYES: Extraocular motions intact. No scleral icterus. No injection or drainage. CARDIOVASCULAR: Regular rate and rhythm without murmurs, gallops, or rubs. RESPIRATORY: Coarse breath sounds throughout. No wheezes, rales, or rhonchi. GASTROINTESTINAL: Abdomen soft, non-tender, nondistended. GENITOURINARY: Left CVA tenderness MUSCULOSKELETAL: Extremities without clubbing, cyanosis, or edema. No joint tenderness, effusion, or edema noted. No calf tenderness. Negative Homans sign bilaterally. NEUROLOGICAL: Awake and alert. No focal deficits appreciated. Motor and sensory grossly within normal limits. Five out of 5 muscle strength in all muscle groups. Normal speech. Laboratory Laboratory Tests Test 09/07/16 09/07/16 12:37 13:37 White Blood Count 8.1 Red Blood Count 4.48 Hemoglobin 12.0 Hematocrit 36.0 Mean Corpuscular Volume 80.4 Mean Corpuscular Hemoglobin 26.7 Mean Corpuscular Hemoglobin 33.2 Concent Red Cell Distribution Width 15.0 Platelet Count 369 Mean Platelet Volume 8.6 Neutrophils (%) (Auto) 62.1 Lymphocytes (%) (Auto) 27.2 Monocytes (%) (Auto) 6.7 Eosinophils (%) (Auto) 3.3 Basophils (%) (Auto) 0.7 Neutrophils # (Auto) 5.0 Lymphocytes # (Auto) 2.2 Monocytes # (Auto) 0.5 Eosinophils # (Auto) 0.3 Basophils # (Auto) 0.1 CBC Comment DIFF FINAL Differential Comment Prothrombin Time 11.1 Prothromb Time International 1.0 Ratio Activated Partial 27.7 Thromboplast Time Sodium Level 140 Potassium Level 3.7 Chloride Level 103 Carbon Dioxide Level 29.4 Anion Gap 8 Blood Urea Nitrogen 10 Creatinine 1.15 Estimat Glomerular Filtration 49 Rate Random Glucose 102 Lactic Acid Level 1.1 Calcium Level 8.8 Magnesium Level 2.3 Total Bilirubin 0.2 Aspartate Amino Transf 15 (AST/SGOT) Alanine Aminotransferase 29 (ALT/SGPT) Alkaline Phosphatase 96 Total Creatine Kinase 156 Creatine Kinase MB 1.0 Troponin I LESS THAN 0.02 Total Protein 8.6 Albumin 3.4 Urine Color LIGHT-YELLOW Urine Turbidity CLEAR Urine pH 6.0 Urine Specific [place] 1.008 Urine Protein NEG Urine Glucose (UA) NEG Urine Ketones NEG Urine Occult Blood NEG Urine Nitrite NEG Urine Bilirubin NEG Urine Urobilinogen LESS THAN 2.0 Urine Leukocyte Esterase NEG Urine RBC LESS THAN 1 Urine WBC 2 Urine Squamous Epithelial 3 Cells Microscopic Urinalysis Comment CATH-CULT NOT IND Date/Time Procedure Status Source Growth 09/07/16 13:32 Aerobic Blood Culture Received Blood Peripheral Pending 09/07/16 13:32 Anaerobic Blood Culture Received Blood Peripheral Pending Result Diagram: 09/07/16 1237 09/07/16 1237 Imaging Last Impressions Chest X-Ray 09/07/16 0000 Signed Impressions: Service Date/Time: Wednesday, September 07, 2016 14:32 - CONCLUSION: No acute cardiopulmonary abnormality is identified. Deon Garcia MD Assessment and Plan Assessment and Plan This is a 55-year-old female with past medical history of hypertension and COPD presents to the emergency department for evaluation of positive blood cultures. Patient was seen in our emergency department 8 days ago for cough with shortness of breath and left flank pain with dysuria. At that time she was noted to have a urinary tract infection and possible pneumonia and was treated with prescribed Cipro, steroids and inhalers. Bacteremia and blood cultures to 2 positive for Escherichia coli Continue Zosyn IV Consults infectious disease Repeat blood cultures UA reviewed negative protein negative Ketones negative nitrate negative leukocyte esterase no culture indicated COPD Chest x-ray reviewed and reveals no acute cardiopulmonary abnormality identified Continue Symbicort twice a day Duo nebs every 6 hours while awake and Q4H as needed Chest pain likely musculoskeletal rule out ACS Troponin every 6 hours 3 Repeat EKG in a.m. Initial EKG reviewed and reveals sinus rhythm 88 Hypertension continue metoprolol XL 25 mg daily DVT prophylaxis with Lovenox Plan of care discussed with patient, ER provider, nursing and Dr. Camacho Agree with management seen in her bedroom stable receiving respiratory therapy Code Status Full code. Discussed Condition With Julissa, JIM, Emergency medicine physician Physician Certification 2 Midnight Certification Type: Admission for Inpatient Services Order for Inpatient Services The services are ordered in accordance with Medicare regulations or non- Medicare payer requirements, as applicable. In the case of services not specified as inpatient-only, they are appropriately provided as inpatient services in accordance with the 2-midnight benchmark. Estimated LOS (days): 4 days is the estimated time the patient will need to remain in the hospital, assuming treatment plan goals are met and no additional complications. Post-Hospital Plan: Not yet determined Nara Baig Sep 07, 2016 17:26 Ramsey Camacho MD Sep 07, 2016 19:55
[2016-09-07] MEDS: SODIUM CHLOR 0.9% 1000 ML INJ 1,000 ML IV SCH (17:50)
[2016-09-07] MEDS: RESP: ALBUTEROL 2.5 MG/IPRATROPIUM 0.5 MG NEB (SCH) NEB (20:21)
[2016-09-07 20:52] VITALS: BP 143/88; PULSE 83; RESP 18; TEMP 97.9; O2SAT 98
[2016-09-07] MEDS ORDERED: KETOROLAC TROMETHAMINE 30 MG/ML (IVP) VIAL IV PUSH ONE (21:15)
[2016-09-07] MEDS ORDERED: guaiFENesin/DEXTROMETHORPHAN 200 MG/20 MG/10 ML CUP PO ONE (21:15)
[2016-09-07] MEDS: SODIUM CHLORIDE 0.9% FLUSH 5 ML FLUSH FLUSH SCH (21:59)
[2016-09-07] MEDS ORDERED: methylPREDNISolone SOD SUCC 40 MG/1 ML VIAL IV PUSH SCH (22:00)
[2016-09-08 01:15] VITALS: BP 124/74; PULSE 89; RESP 20; TEMP 97.8; O2SAT 98
[2016-09-08 05:25] VITALS: BP 120/74; PULSE 84; RESP 20; TEMP 97.8; O2SAT 99
[2016-09-08] MEDS: PIPERACIL-TAZO 3.375 GM PREMIX 50 ML IV SCH ×2 (06:31→12:00)
[2016-09-08 07:53] VITALS: O2SAT 98
[2016-09-08] MEDS: RESP: ALBUTEROL 2.5 MG/IPRATROPIUM 0.5 MG NEB (SCH) NEB ×2 (07:53→11:52)
[2016-09-08 08:00] VITALS: BP 150/99; PULSE 74; RESP 20; TEMP 96.9; O2SAT 96
[2016-09-08 08:15] VITALS: BP 142/96; PULSE 84; RESP 17; TEMP 97.1; O2SAT 98
[2016-09-08] MEDS: SODIUM CHLORIDE 0.9% FLUSH 5 ML FLUSH FLUSH SCH (08:43)
[2016-09-08] MEDS ORDERED: METOPROLOL SUCCINATE 25 MG EXTENDED RELEASE TAB PO SCH (09:00)
[2016-09-08 10:23] LABS: AUTOMATED NEUTROPHIL # 3.9 TH/MM3 (1.8-7.7); BASOPHIL % 0.8 % (0.0-2.0); EOSINOPHIL # 0.2 TH/MM3 (0-0.4); EOSINOPHIL % 3.7 % (0.0-4.0); HEMATOCRIT 34.3 % (35.0-46.0); HEMO FLAGS DIFF FINAL; LYMPH % 25.2 % (9.0-44.0); LYMPHOCYTE # 1.5 TH/MM3 (1.0-4.8); MEAN CELL VOLUME 80.8 FL (80.0-100.0); MEAN CORPUSCULAR HEMOGLOBIN 26.9 PG (27.0-34.0); MEAN CORPUSCULAR HGB CONC 33.3 % (32.0-36.0); MONO % 7.2 % (0.0-8.0); NEUT % 63.1 % (16.0-70.0); PLATELET COUNT 301 TH/MM3 (150-450); RED BLOOD COUNT 4.24 MIL/MM3 (4.00-5.30); RED CELL DISTRIBUTION WIDTH 14.7 % (11.6-17.2); WHITE BLOOD COUNT 6.1 TH/MM3 (4.0-11.0)
[2016-09-08 10:43] LABS: BICARBONATE 28.7 MEQ/L (21.0-32.0); POTASSIUM 3.7 MEQ/L (3.5-5.1)
[2016-09-08] MEDS ORDERED: traMADol/ACETAMINOPHEN 37.5/325 1 TAB PO PRN (11:30)
[2016-09-08 12:00] VITALS: BP 138/89; PULSE 74; RESP 20; TEMP 97.1; O2SAT 96
[2016-09-08] MEDS: SODIUM CHLOR 0.9% 1000 ML INJ 1,000 ML IV SCH (12:01)
--- NOTE | 2016-09-08 12:54 | PD.CONS ---
History of Present Illness Service Infectious disease Consult Requested By Alberto Wiseman [facility] Reason for Consult Evaluate patient with bacteremia Primary Care Physician No Primary Care Physician Diagnoses: History of Present Illness Patient seen and examined. Records reviewed. Patient is a 55-year-old female presented to the hospital complaining of pain and shortness of breath. She had recently been in the emergency room on August 30 with similar complaints. And at that time she was also complaining of left-sided flank pain. She had a chest x-ray which was normal. She also had a urinalysis which showed evidence of UTI. She was given treatment for COPD exacerbation, as well as Cipro. Patient apparently was not able to buy the steroids. She presented with same complaints and not improving. She claims a temperature of about 101. Since admission patient has not had any fever. Her WBC is normal. She had a urine culture and blood culture that had Escherichia coli. Repeat blood culture here is still pending. Chest x-ray was repeated and that is still negative for any acute infiltrate. Patient states that the left flank pain has resolved. She still having some shortness of breath. Infectious disease consultation has been requested to evaluate the patient. Review of Systems Constitutional: DENIES: Fever, Chills Eyes: DENIES: Eye pain Ears, nose, mouth, throat: DENIES: Nasal discharge, Oral lesions, Throat pain, Ear Pain, Running Nose, Toothache Respiratory: COMPLAINS OF: Cough, Shortness of breath, DENIES: Hemoptysis Cardiovascular: DENIES: Chest pain, Palpitations Gastrointestinal: DENIES: Abdominal pain, Diarrhea, Nausea, Vomiting, Difficulty Swallowing Genitourinary: DENIES: Urinary frequency, Dysuria Musculoskeletal: DENIES: Joint pain, Joint Swelling Integumentary: DENIES: Rash Hematologic/lymphatic: DENIES: Bruising, Lymphadenopathy Immunologic/allergic: DENIES: Eczema, Urticaria Neurologic: COMPLAINS OF: Headache Psychiatric: COMPLAINS OF: Anxiety, DENIES: Confusion, Hallucinations Past Family Social History Allergies: Coded Allergies: Codeine (Verified Allergy, Severe, Nausea/Vomiting, 09/07/16) Past Medical History Hypertension COPD GERD Past Surgical History Tubal ligation Bronchoscopy with lung biopsy, told it was not malignant Active Ordered Medications Tylenol Albuterol Lovenox Toprol Zofran Zosyn Ultracet Social History Denies any smoking history States she was exposed to a lot of chemicals Occasional alcohol No illicit drug Physical Exam Vital Signs Vital Signs Date Time Temp Pulse Resp B/P Pulse Ox O2 Delivery O2 Flow Rate FiO2 09/08/16 12:00 97.1 74 20 138/89 96 09/08/16 08:15 97.1 84 17 142/96 98 09/08/16 08:00 96.9 74 20 150/99 96 09/08/16 07:53 98 21 09/08/16 05:25 97.8 84 20 120/74 99 09/08/16 01:15 97.8 89 20 124/74 98 09/07/16 23:37 19 09/07/16 20:52 97.9 83 18 143/88 98 09/07/16 15:27 98.2 89 20 130/84 99 Room Air Physical Exam GENERAL: This is a well-nourished, well-developed female, awake and alert, in no apparent distress. SKIN: Warm and dry. No generalized rash. HEAD: Atraumatic. Normocephalic. No temporal or scalp tenderness. EYES: [place] conjunctivae. Pupils equal round and reactive. Extraocular motions intact. No scleral icterus. No injection or drainage. ENT: Nose without bleeding, or purulent drainage. Moist oral mucosa. Throat without erythema, or exudate. Uvula midline. Airway patent. NECK: Trachea midline. No JVD or lymphadenopathy. Supple, nontender, no meningeal signs. CARDIOVASCULAR: Regular rate and rhythm without murmurs, gallops, or rubs. RESPIRATORY: Clear to auscultation. Breath sounds equal bilaterally. No wheezes , rales, or rhonchi. GASTROINTESTINAL: Abdomen soft, non-tender, nondistended. No hepato-splenomegaly , or palpable masses. No guarding. BACK: No CVA tenderness. EXTREMITIES: No clubbing, cyanosis or edema. No calf tenderness. No joint effusion or edema. Good range of motion in all joints. NEUROLOGICAL: Awake and alert. Cranial nerves II through XII intact. Motor and sensory grossly within normal limits. Five out of 5 muscle strength in all muscle groups. Normal speech. PSYCH: Appropriate affect, calm and cooperative LINE: PIV with no evidence of infection Laboratory Laboratory Tests Test 09/07/16 09/07/16 09/08/16 09/08/16 13:37 20:50 00:49 09:50 Urine Color LIGHT-YELLOW Urine Turbidity CLEAR Urine pH 6.0 Urine Specific [place] 1.008 Urine Protein NEG Urine Glucose (UA) NEG Urine Ketones NEG Urine Occult Blood NEG Urine Nitrite NEG Urine Bilirubin NEG Urine Urobilinogen LESS THAN 2.0 Urine Leukocyte Esterase NEG Urine RBC LESS THAN 1 Urine WBC 2 Urine Squamous Epithelial 3 Cells Microscopic Urinalysis Comment CATH-CULT NOT IND Troponin I LESS THAN 0.02 LESS THAN 0.02 White Blood Count 6.1 Red Blood Count 4.24 Hemoglobin 11.4 Hematocrit 34.3 Mean Corpuscular Volume 80.8 Mean Corpuscular Hemoglobin 26.9 Mean Corpuscular Hemoglobin 33.3 Concent Red Cell Distribution Width 14.7 Platelet Count 301 Mean Platelet Volume 8.3 Neutrophils (%) (Auto) 63.1 Lymphocytes (%) (Auto) 25.2 Monocytes (%) (Auto) 7.2 Eosinophils (%) (Auto) 3.7 Basophils (%) (Auto) 0.8 Neutrophils # (Auto) 3.9 Lymphocytes # (Auto) 1.5 Monocytes # (Auto) 0.4 Eosinophils # (Auto) 0.2 Basophils # (Auto) 0.0 CBC Comment DIFF FINAL Differential Comment Sodium Level 142 Potassium Level 3.7 Chloride Level 106 Carbon Dioxide Level 28.7 Anion Gap 7 Blood Urea Nitrogen 9 Creatinine 1.15 Estimat Glomerular Filtration 49 Rate Random Glucose 85 Calcium Level 8.5 Date/Time Procedure Status Source Growth 09/07/16 13:32 Aerobic Blood Culture - Preliminary Resulted Blood Peripheral NO GROWTH IN 1 DAY 09/07/16 13:32 Anaerobic Blood Culture - Preliminary Resulted Blood Peripheral NO GROWTH IN 1 DAY Result Diagram: 09/08/16 0950 09/08/16 0950 Imaging RADIOLOGY STUDIES/FILMS REVIEWED Chest X-Ray 09/07/16 0000 Signed Impressions: Service Date/Time: Wednesday, September 07, 2016 14:32 - CONCLUSION: No acute cardiopulmonary abnormality is identified. Deon Garcia MD Assessment and Plan Assessment and Plan IMPRESSION E coli urosepsis, clinically better COPD exacerbation RECOMMENDATION Cipro x 5 more days for the E coli bacteremia Rx COPD Patient is clinically stable from ID standpoint for D/C Thank you for this consultation Discussed Condition With Explain recommendation to the patient Marilee Rao MD Sep 08, 2016 12:54
[2016-09-08] MEDS ORDERED: CIPROFLOXACIN 750 MG TAB PO SCH ×2 (13:00)
--- NOTE | 2016-09-08 14:06 | HHI.PR ---
Subjective Remarks This is a pleasant 55 y/o Female who has COPD, came to ER with positive blood cultures, she was seen in ER 8 days ago for shortness of breath, has left flank pain with dysuria, she was taking Cipro and Steroids started having chills last week, which have gotten better, she was unable to afford the steroids, continued with shortness of breath and cough with yellow/clear sputum, Fever 101F the night before coming to ER, Pleuritic left anterior chest pain, aggravated with coughing reproducible with palpation, Chest pain associated with cough and reproducible with palpation. She has Hypertension, GERD, COPD, seen in the room stable okay to discharge home as recommended by ID specialist will go on Ciprofloxacin for five more days Objective Vital Signs Date Time Temp Pulse Resp B/P Pulse Ox O2 Delivery O2 Flow Rate FiO2 09/08/16 12:00 97.1 74 20 138/89 96 09/08/16 08:15 97.1 84 17 142/96 98 09/08/16 08:00 96.9 74 20 150/99 96 09/08/16 07:53 98 21 09/08/16 05:25 97.8 84 20 120/74 99 09/08/16 01:15 97.8 89 20 124/74 98 09/07/16 23:37 19 09/07/16 20:52 97.9 83 18 143/88 98 09/07/16 15:27 98.2 89 20 130/84 99 Room Air I/O 09/07/16 09/07/16 09/07/16 09/08/16 09/08/16 09/08/16 07:00 15:00 23:00 07:00 15:00 23:00 Intake Total 480 ml 163 ml Balance 480 ml 163 ml Intake Oral 480 ml IV Total 163 ml # Voids 1 Result Diagram: 09/08/16 0950 09/08/16 0950 Imaging Last Impressions Chest X-Ray 09/07/16 0000 Signed Impressions: Service Date/Time: Wednesday, September 07, 2016 14:32 - CONCLUSION: No acute cardiopulmonary abnormality is identified. Deon Garcia MD Procedures No procedures performed to the patient Other Results Laboratory Tests Test 09/07/16 09/07/16 09/08/16 09/08/16 12:37 13:37 00:49 09:50 Prothrombin Time 11.1 SEC Prothromb Time International 1.0 RATIO Ratio Activated Partial 27.7 SEC Thromboplast Time Lactic Acid Level 1.1 mmol/L Magnesium Level 2.3 MG/DL Total Bilirubin 0.2 MG/DL Aspartate Amino Transf 15 U/L (AST/SGOT) Alanine Aminotransferase 29 U/L (ALT/SGPT) Alkaline Phosphatase 96 U/L Total Creatine Kinase 156 U/L Creatine Kinase MB 1.0 NG/ML Total Protein 8.6 GM/DL Albumin 3.4 GM/DL Urine Color LIGHT-YELLOW Urine Turbidity CLEAR Urine pH 6.0 Urine Specific [place] 1.008 Urine Protein NEG mg/dL Urine Glucose (UA) NEG mg/dL Urine Ketones NEG mg/dL Urine Occult Blood NEG Urine Nitrite NEG Urine Bilirubin NEG Urine Urobilinogen LESS THAN 2.0 MG/DL Urine Leukocyte Esterase NEG Urine RBC LESS THAN 1 /hpf Urine WBC 2 /hpf Urine Squamous Epithelial 3 /hpf Cells Microscopic Urinalysis Comment CATH-CULT NOT IND Troponin I LESS THAN 0.02 NG/ML White Blood Count 6.1 TH/MM3 Red Blood Count 4.24 MIL/MM3 Hemoglobin 11.4 GM/DL Hematocrit 34.3 % Mean Corpuscular Volume 80.8 FL Mean Corpuscular Hemoglobin 26.9 PG Mean Corpuscular Hemoglobin 33.3 % Concent Red Cell Distribution Width 14.7 % Platelet Count 301 TH/MM3 Mean Platelet Volume 8.3 FL Neutrophils (%) (Auto) 63.1 % Lymphocytes (%) (Auto) 25.2 % Monocytes (%) (Auto) 7.2 % Eosinophils (%) (Auto) 3.7 % Basophils (%) (Auto) 0.8 % Neutrophils # (Auto) 3.9 TH/MM3 Lymphocytes # (Auto) 1.5 TH/MM3 Monocytes # (Auto) 0.4 TH/MM3 Eosinophils # (Auto) 0.2 TH/MM3 Basophils # (Auto) 0.0 TH/MM3 CBC Comment DIFF FINAL Differential Comment Sodium Level 142 MEQ/L Potassium Level 3.7 MEQ/L Chloride Level 106 MEQ/L Carbon Dioxide Level 28.7 MEQ/L Anion Gap 7 MEQ/L Blood Urea Nitrogen 9 MG/DL Creatinine 1.15 MG/DL Estimat Glomerular Filtration 49 ML/MIN Rate Random Glucose 85 MG/DL Calcium Level 8.5 MG/DL Objective Remarks GENERAL: This is a well-nourished, well-developed patient, in no apparent distress. SKIN: No rashes, ecchymoses or lesions. Cool and dry. HEAD: Atraumatic. Normocephalic. No temporal or scalp tenderness. EYES: Extraocular motions intact. No scleral icterus. No injection or drainage. CARDIOVASCULAR: Regular rate and rhythm without murmurs, gallops, or rubs. RESPIRATORY: Coarse breath sounds throughout. No wheezes, rales, or rhonchi. GASTROINTESTINAL: Abdomen soft, non-tender, nondistended. GENITOURINARY: Left CVA tenderness MUSCULOSKELETAL: Extremities without clubbing, cyanosis, or edema. No joint tenderness, effusion, or edema noted. No calf tenderness. Negative Homans sign bilaterally. NEUROLOGICAL: Awake and alert. No focal deficits appreciated. Motor and sensory grossly within normal limits. Five out of 5 muscle strength in all muscle groups. Normal speech. Medications and IVs Current Medications Medications (Trade) Dose Ordered Sig/Reji Route Start Time Stop Time Status Last Admin (NS 1000 ml Inj) 1,000 ml @ 50 mls/hr Q20H IV 09/07/16 16:52 09/08/16 12:01 (NS Flush) 2 ml UNSCH PRN FLUSH 09/07/16 17:00 09/08/16 06:32 (NS Flush) 2 ml BID FLUSH 09/07/16 21:00 09/08/16 08:43 (Tylenol) 650 mg Q4H PRN PO 09/07/16 17:00 09/08/16 08:42 (Zofran Inj) 4 mg Q6H PRN IVP 09/07/16 17:00 09/08/16 13:38 (Lovenox Inj) 40 mg Q24H SQ 09/07/16 17:00 09/07/16 17:50 (Narcan Inj) 0.4 mg UNSCH PRN IV 09/07/16 17:00 (Toprol Xl) 25 mg DAILY PO 09/08/16 09:00 09/08/16 08:41 (Ultracet 37.5-325 Mg) 1 tab Q6H PRN PO 09/08/16 11:30 09/08/16 13:03 (Cipro) 750 mg Q12HR PO 09/08/16 13:00 3/12/17 12:59 09/08/16 13:16 A/P Assessment and Plan 1. Bacteremia and blood culture positive for E Coli on Zosyn IV consulted ID specialist, follow blood cultures as per ID specialist recommended to go home on Ciprofloxacin for five days. 2. COPD stable CXR reviewed and reveal no acute Cardiopulmonary abnormality, continue bronchodilator Mucolytic and incentive spirometry. 3. Atypical Chest pain likely Musculoskeletal. 4. Hypertension controlled DVT prophylaxis with Lovenox Discussed with nurse Miss Reis and with patient in the room. Discharge Planning Discharge Home today Ramsey Bishop MD Sep 08, 2016 14:06
[2016-09-08] MEDS ORDERED: CIPR750T2 PO (14:55)
[2016-09-08] MEDS ORDERED: PROT40TA PO (14:55)
--- NOTE | 2016-09-08 14:57 | HHI.DS ---
Discharge Summary Admission Date Sep 07, 2016 at 16:12 Discharge Date: Sep 08, 2016 Admitting Diagnosis Bacteremia (1) Bacteremia due to Escherichia coli ICD Code: R78.81 Diagnosis: Principal Procedures No procedures performed to the patient. Brief History - From Admission This is a 55-year-old female with past medical history of hypertension and COPD presents to the emergency department for evaluation of positive blood cultures. Patient was seen in our emergency department 8 days ago for cough with shortness of breath and left flank pain with dysuria. At that time she was noted to have a urinary tract infection and possible pneumonia and was treated with prescribed Cipro, steroids and inhalers. States that she has been taking the antibiotics as prescribed and using her inhalers. Patient reports she was having chills last week which have gotten better. Patient reports her urine continues to be strong smelling and she continues to have a left sided flank pain. Patient reports she was unable to afford the steroids. States that she has continued to have shortness of breath with continued cough productive of yellow/clear phlegm. States she had fever of 101F last night. She also complains of having pleuritic left anterior chest pain aggravated with coughing reproducible with palpation. Chest pain is not associated with shortness of breath diaphoresis and does not radiate. CBC/BMP: 09/08/16 0950 09/08/16 0950 Significant Findings Laboratory Tests Test 09/07/16 09/07/16 09/08/16 09/08/16 12:37 20:50 00:49 09:50 Mean Corpuscular Hemoglobin 26.7 PG 26.9 PG (27.0-34.0) (27.0-34.0) Creatinine 1.15 MG/DL 1.15 MG/DL (0.50-1.00) (0.50-1.00) Estimat Glomerular Filtration 49 ML/MIN (>89) 49 ML/MIN (>89) Rate Troponin I LESS THAN 0.02 LESS THAN 0.02 LESS THAN 0.02 NG/ML NG/ML NG/ML (0.02-0.05) (0.02-0.05) (0.02-0.05) Total Protein 8.6 GM/DL (6.4-8.2) Hemoglobin 11.4 GM/DL (11.6-15.3) Hematocrit 34.3 % (35.0-46.0) Imaging Last Impressions Chest X-Ray 09/07/16 0000 Signed Impressions: Service Date/Time: Wednesday, September 07, 2016 14:32 - CONCLUSION: No acute cardiopulmonary abnormality is identified. Deon Garcia MD PE at Discharge GENERAL: This is a well-nourished, well-developed patient, in no apparent distress. SKIN: No rashes, ecchymoses or lesions. Cool and dry. HEAD: Atraumatic. Normocephalic. No temporal or scalp tenderness. EYES: Extraocular motions intact. No scleral icterus. No injection or drainage. CARDIOVASCULAR: Regular rate and rhythm without murmurs, gallops, or rubs. RESPIRATORY: Coarse breath sounds throughout. No wheezes, rales, or rhonchi. GASTROINTESTINAL: Abdomen soft, non-tender, nondistended. GENITOURINARY: Left CVA tenderness MUSCULOSKELETAL: Extremities without clubbing, cyanosis, or edema. No joint tenderness, effusion, or edema noted. No calf tenderness. Negative Homans sign bilaterally. NEUROLOGICAL: Awake and alert. No focal deficits appreciated. Motor and sensory grossly within normal limits. Five out of 5 muscle strength in all muscle groups. Normal speech. Hospital Course This is a pleasant 55 y/o Female who has COPD, came to ER with positive blood cultures, she was seen in ER 8 days ago for shortness of breath, has left flank pain with dysuria, she was taking Cipro and Steroids started having chills last week, which have gotten better, she was unable to afford the steroids, continued with shortness of breath and cough with yellow/clear sputum, Fever 101F the night before coming to ER, Pleuritic left anterior chest pain, aggravated with coughing reproducible with palpation, Chest pain associated with cough and reproducible with palpation. She has Hypertension, GERD, COPD, seen in the room stable okay to discharge home as recommended by ID specialist will go on Ciprofloxacin for five more days 1. Bacteremia and blood culture positive for E Coli on Zosyn IV consulted ID specialist, follow blood cultures as per ID specialist recommended to go home on Ciprofloxacin for five days. 2. COPD stable CXR reviewed and reveal no acute Cardiopulmonary abnormality, continue bronchodilator Mucolytic and incentive spirometry. 3. Atypical Chest pain likely Musculoskeletal. 4. Hypertension controlled DVT prophylaxis with Lovenox Discussed with nurse Miss Lem[place] and with patient in the room. Discharge Planning Discharge Home today Pt Condition on Discharge: Good Discharge Disposition: Discharge Home Discharge Time: <= 30 minutes Discharge Instructions DIET: Follow Instructions for: Heart Healthy Diet Activities you can perform: Regular-No Restrictions Ramsey Bishop MD Sep 08, 2016 14:57
[2016-09-08] MEDS ORDERED: PRED20 PO (15:05)
[2016-09-08] MEDS ORDERED: PANTOPRAZOLE SODIUM 40 MG VIAL IV PUSH ONE (15:15)
--- NOTE | 2016-09-08 15:23 | EKG ---
Date Performed: 09/08/2016 Time Performed: 05:34:10 PTAGE: 55 years EKG: Sinus rhythm Normal ECG PREVIOUS TRACING : 09/07/2016 13.49 No significant change from previous tracing noted. DOCTOR: Tom Peoples Interpretating Date/Time 09/08/2016 15:22:09
--- NOTE | 2016-09-08 15:43 | EKG ---
Date Performed: 09/07/2016 Time Performed: 13:49:14 PTAGE: 55 years EKG: Sinus rhythm BORDERLINE LEFT AXIS DEVIATION BORDERLINE ECG NO PREVIOUS TRACING DOCTOR: Tom Peoples Interpretating Date/Time 09/08/2016 15:41:26
== END 2016-09-08 16:31 | disposition home or self-care (01) | DRG 872 ==
LOC: NEPC 11:40 → NEDA 16:12 → N05B 18:05
PROVIDERS: ADMIT Internal Medicine; ATTEND Internal Medicine
DX: R78.81 Bacteremia (principal); J44.9 Chronic obstructive pulmonary disease, unspecified; I10 Essential (primary) hypertension; K21.9 Gastro-esophageal reflux disease without esophagitis; R07.89 Other chest pain; E78.5 Hyperlipidemia, unspecified
CPT/HCPCS: 71020; 80048; 80053; 81001; 82550; 82552; 83605; 83735; 84484; 85025; 85610; 85730; 87040; 93005; 94640; 94664; 96374; C9113; J1650; J1885; J2405; J2543; J7030

== ENCOUNTER 2016-09-21 13:09 | Emergency (ER) | payer SELFPAY ==
[~2016-09-21] VITALS: Ht 162.6 cm; Wt 76.0 kg
[~2016-09-21 13:09] MED LIST changes: -CIPR-9 PO; +CIPR750T2 PO; +PROT40TA PO; -VENTAER INH
[2016-09-21 13:11] VITALS: BP 137/86; PULSE 103; RESP 20; TEMP 97.7; O2SAT 98
[2016-09-21] MEDS ORDERED: ERYTOIN10 EACH EYE ×2 (16:02→16:03)
--- NOTE | 2016-09-21 16:03 | PD ---
HPI Chief Complaint: Cold / Flu Symptoms Time Seen by Provider: 15:50 Travel History International Travel<30 days: No Contact w/Intl Traveler<30days: No Traveled to known affect area: No History of Present Illness HPI Patient is a 55-year-old female presenting to the emergency department for evaluation of sore throat, eye redness and tearing, cough. Patient states her symptoms started 2 days ago, she reports waking up in the morning with her eyes crusted together and reports clear drainage throughout the day. She denies any fevers, chills, nausea, vomiting, headache, visual changes, foreign body sensation. PFSH Past Medical History Hx Anticoagulant Therapy: Yes (ASA) Asthma: Yes Anxiety: Yes Heart Rhythm Problems: Yes (HEART MURMUR) Cancer: No Cardiac Catheterization: No Cardiovascular Problems: Yes High Cholesterol: Yes Chest Pain: Yes Congestive Heart Failure: No COPD: Yes Diabetes: No Diminished Hearing: No Endocrine: No Gastrointestinal Disorders: Yes GERD: Yes Hypertension: Yes Implanted Vascular Access Dvce: No Musculoskeletal: Yes Neurologic: No Psychiatric: No Reproductive: No Respiratory: Yes (COPD) Migraines: Yes Pneumonia: Yes Menopausal: Yes : 3 Para: 3 Tubal Ligation: Yes Past Surgical History Coronary Artery Bypass Graft: No Gynecologic Surgery: Yes (TUBAL LIGATION) Other Surgery: Yes (BRONCH WASHING AND LUNG BIOPSY) Social History Alcohol Use: No Tobacco Use: No Substance Use: No Allergies-Medications (Allergen,Severity, Reaction): Coded Allergies: Codeine (Verified Allergy, Severe, Nausea/Vomiting, 09/21/16) Reported Meds & Prescriptions Reported Meds & Active Scripts Active Prednisone 20 Mg Tab 20 Mg PO DIRECTED one tablet daily by mouth for five days. Protonix (Pantoprazole Sodium) 40 Mg Tab 40 Mg PO DAILY Ciprofloxacin (Ciprofloxacin HCl) 750 Mg Tab 750 Mg PO Q12HR Toprol XL (Metoprolol Succinate) 25 Mg Tab 25 Mg PO DAILY Review of Systems Except as stated in HPI: all other systems reviewed are Neg General / Constitutional: No: Fever, Chills Eyes: Positive: Redness, Tearing, No: Blurred Vision HENT: Positive: Sore Throat, Congestion, No: Headaches Cardiovascular: No: Chest Pain or Discomfort Respiratory: Positive: Cough, No: Shortness of Breath Gastrointestinal: No: Nausea Genitourinary: No: Urgency Musculoskeletal: No: Myalgias Physical Exam Narrative GENERAL: Well-developed, well-nourished, alert female. Resting comfortably in no acute distress. SKIN: Warm and dry. HEAD: Atraumatic. Normocephalic. EYES: Pupils equal and round. No scleral icterus. Mild injection bilaterally, no drainage noted. Extraocular movements are intact. ENT: Mucosa pink and moist. No erythema or exudates. No uvular edema. No uvular , palatal, or tonsillar deviation. Airway patent. Nasal turbinates appear normal without nasal blood, purulent drainage or septal hematoma. Cobblestone appearance to posterior pharynx. CARDIOVASCULAR: Regular rate and rhythm. No murmur appreciated. RESPIRATORY: No accessory muscle use. Clear to auscultation. Breath sounds equal bilaterally. GASTROINTESTINAL: Abdomen soft, non-tender, nondistended. Hepatic and splenic margins not palpable. MUSCULOSKELETAL: No obvious deformities. No clubbing. No cyanosis. No edema. NEUROLOGICAL: Awake and alert. No obvious cranial nerve deficits. Motor grossly within normal limits. Normal speech. PSYCHIATRIC: Appropriate mood and affect; insight and judgment normal. Data Data Last Documented VS Vital Signs Date Time Temp Pulse Resp B/P Pulse Ox O2 Delivery O2 Flow Rate FiO2 09/21/16 13:11 97.7 103 20 137/86 98 Room Air [facility] Medical Decision Making Medical Screen Exam Complete: Yes Emergency Medical Condition: Yes Interpretation(s) Vital Signs Date Time Temp Pulse Resp B/P Pulse Ox O2 Delivery O2 Flow Rate FiO2 09/21/16 13:11 97.7 103 20 137/86 98 Room Air Differential Diagnosis Viral conjunctivitis versus viral syndrome versus viral URI versus episcleritis versus iritis versus other Narrative Course Patient is a 55-year-old female presenting to emergency for evaluation of cough and cold as well as eye redness started 2 days ago. Patient completed a course of antibiotics today. Physical examination appears more consistent with a viral upper respiratory infection. Her lungs are clear to auscultation. Patient is afebrile, her vital signs are stable. She was mildly tachycardic with a heart rate of 103 on arrival however she has been coughing. Patient provided with a prescription for erythromycin ointment. She is encouraged to continue symptomatic management. She is encouraged to follow-up with her primary doctor return to emergency department for new or worsening symptoms. Patient verbalized understanding of instructions. Patient is stable for discharge. Diagnosis Primary Impression: Viral syndrome Referrals: [facility] Primary Care Physician Patient Instructions: General Instructions, Viral Syndrome (ED) Additional Instructions: Follow-up with a primary care provider or at [facility] Continue with symptomatic management Use medications as directed Return to emergency department for any new or worsening symptoms Med/Other Pt SpecificInfo: Prescription(s) given Scripts Erythromycin Opth Oint 5 Mg/Gm Oint1 Applic EACH EYE Q6HR NEB #1 TUBE Ref 0 Prov:Batsheva Quick 09/21/16 Disposition: 01 DISCHARGE HOME Condition: Stable Batsheva Quick Sep 21, 2016 16:03
[2016-09-21] MEDS ORDERED: ERYTHROMYCIN 0.5% OPTH OINT 3.5 GM TUBO EACH EYE ONE (16:15)
== END 2016-09-21 16:20 | disposition home or self-care (01) ==
LOC: NEPB 13:09
DX: B34.9 Viral infection, unspecified (principal); E78.00 Pure hypercholesterolemia, unspecified; J44.9 Chronic obstructive pulmonary disease, unspecified; I10 Essential (primary) hypertension
CPT/HCPCS: 99283

== ENCOUNTER 2018-01-22 14:04 | Observation (INO) ==
--- NOTE | 2018-01-22 14:21 | ED ---
HPI General Chief Complaint: Chest Pain Stated Complaint: Chest pain Time Seen by Provider: 01/22/18 14:17 Source: patient Mode of arrival: EMS Limitations: no limitations History of Present Illness HPI narrative: Patient complains of a left-sided sharp chest pain nonradiating, associated with productive cough of yellow sputum per patient she has a history of COPD MD complaint: chest pain Complete Quality Measures for STEMI Alert Patients STEMI Alert: No Onset (ago): day(s) (Onset of her last 2 days) Duration: progressively worsening Onset: during rest Pain location: left chest Severity: moderate Severity scale (1-10): 5 Quality: sharp Pain radiation: none Relieving factors: nothing Exacerbating factors: other (Coughing) Associated symptoms: cough Treatments prior to arrival chest pain: none Related Data On Oral Contraceptives: No Home Medications Medication Instructions Recorded Confirmed No Known Home Medications 01/22/18 01/22/18 Allergies Allergy/AdvReac Type Severity Reaction Status Date / Time codeine AdvReac Severe Nausea/Vomi Verified 01/22/18 14:16 ting Review of Systems Except as stated in HPI: all other systems reviewed are negative PMFSH History History Provided By: Patient Medical History Medical History COPD (chronic obstructive pulmonary disease) (Acute) HTN (hypertension) (Acute) Surgical History Surgical History H/O tubal ligation (Acute) Social History Social History Substance History: No History of Abuse Second Hand Smoke Exposure: Yes Smoking Status: Never smoker Tobacco Type: Cigarettes How Often Do You Have a Drink Containing Alcohol: Never Recent Travel in [facility] within the Last 8 Weeks: No Recent Out of Country Travel within the Last 8 Weeks: No Exam Narrative Exam Narrative: GENERAL: Well-nourished, well-developed patient in no apparent distress. SKIN: Warm and dry. HEAD: Atraumatic. Normocephalic. EYES: Pupils equal and round. No scleral icterus. No injection or drainage. ENT: No nasal bleeding or discharge. Mucous membranes pink and moist. NECK: Trachea midline. No JVD. CARDIOVASCULAR: Regular rate and rhythm. no rubs or gallops RESPIRATORY: No accessory muscle use. Clear to auscultation. Breath sounds equal bilaterally. GASTROINTESTINAL: Abdomen soft, non-tender, nondistended. No rebound or guarding MUSCULOSKELETAL: Extremities without clubbing, cyanosis, or edema. No obvious deformities. NEUROLOGICAL: Awake and alert. No obvious cranial nerve deficits. Motor grossly within normal limits. Five out of 5 muscle strength in the arms and legs. Normal speech. PSYCHIATRIC: Appropriate mood and affect; insight and judgment normal. Course Initial Documented Vital Signs Pulse Rate 99 H 01/22/18 14:16 Respiratory Rate 16 01/22/18 14:16 Blood Pressure 138/79 01/22/18 14:16 Pulse Oximetry 98 01/22/18 14:16 Last Documented Vital Signs Pulse Rate 99 H 01/22/18 14:16 Respiratory Rate 16 01/22/18 14:16 Blood Pressure 138/79 01/22/18 14:16 Pulse Oximetry 98 01/22/18 14:22 Medical Decision Making Differential Diagnosis Differential Diagnosis: Pneumothorax versus pneumonia versus MD Lab Data Lab results reviewed: Yes I reviewed the patient's lab results. Result diagrams: 01/22/18 14:25 01/22/18 14:25 Lab Results 01/22/18 01/22/18 01/22/18 Range/Units 14:25 14:25 14:25 WBC 7.3 (4.0-11.0) th/mm3 RBC 4.66 (4.00-5.30) mil/mm3 Hgb 13.6 (11.6-15.3) gm/dL Hct 40.3 (35.0-46.0) % MCV 86.6 (80.0-100.0) fL MCH 29.2 (27.0-34.0) pg MCHC 33.7 (32.0-36.0) % RDW 13.5 (11.6-17.2) % Plt Count 263 (150-450) th/mm3 MPV 8.9 (7.0-11.0) fL Neut % (Auto) 64.6 (16.0-70.0) % Lymph % (Auto) 23.8 (9.0-44.0) % [place] % (Auto) 9.0 H (0.0-8.0) % Eos % (Auto) 2.2 (0.0-4.0) % Baso % (Auto) 0.4 (0.0-2.0) % Neut # (Auto) 4.7 (1.8-7.7) th/mm3 Lymph # (Auto) 1.7 (1.0-4.8) th/mm3 [place] # (Auto) 0.7 (0.0-0.9) th/mm3 Eos # (Auto) 0.2 (0.0-0.4) th/mm3 Baso # (Auto) 0.0 (0.0-0.2) th/mm3 WBC Differential . Differential Comment Auto diff final PT 10.7 (9.8-11.6) sec INR 1.1 Ratio APTT 23.7 L (24.3-30.1) sec Sodium (136-145) meq/L Potassium (3.5-5.1) meq/L Chloride (98-107) meq/L Carbon Dioxide (21.0-32.0) meq/L Anion Gap (5-15) meq/L BUN (7-18) mg/dL Creatinine (0.50-1.00) mg/dL Estimated GFR (>89) mL/min Random Glucose (74-106) mg/dL Calcium (8.5-10.1) mg/dL Total Bilirubin (0.2-1.0) mg/dL AST (15-37) U/L ALT (10-53) U/L Alkaline Phosphatase (45-117) U/L Total Creatine Kinase (26-192) U/L CK-MB (CK-2) (0.5-3.6) ng/mL CK-MB (CK-2) % (0.0-4.0) % Troponin I Less than 0.02 L (0.02-0.05) ng/mL B-Natriuretic Peptide (0-100) pg/mL Total Protein (6.4-8.2) g/dL Albumin (3.4-5.0) g/dL Lipase 134 (73-393) U/L 01/22/18 01/22/18 Range/Units 14:25 14:25 WBC (4.0-11.0) th/mm3 RBC (4.00-5.30) mil/mm3 Hgb (11.6-15.3) gm/dL Hct (35.0-46.0) % MCV (80.0-100.0) fL MCH (27.0-34.0) pg MCHC (32.0-36.0) % RDW (11.6-17.2) % Plt Count (150-450) th/mm3 MPV (7.0-11.0) fL Neut % (Auto) (16.0-70.0) % Lymph % (Auto) (9.0-44.0) % Norman % (Auto) (0.0-8.0) % Eos % (Auto) (0.0-4.0) % Baso % (Auto) (0.0-2.0) % Neut # (Auto) (1.8-7.7) th/mm3 Lymph # (Auto) (1.0-4.8) th/mm3 [place] # (Auto) (0.0-0.9) th/mm3 Eos # (Auto) (0.0-0.4) th/mm3 Baso # (Auto) (0.0-0.2) th/mm3 WBC Differential Differential Comment PT (9.8-11.6) sec INR Ratio APTT (24.3-30.1) sec Sodium 144 (136-145) meq/L Potassium 3.4 L (3.5-5.1) meq/L Chloride 110 H (98-107) meq/L Carbon Dioxide 25.5 (21.0-32.0) meq/L Anion Gap 9 (5-15) meq/L BUN 14 (7-18) mg/dL Creatinine 1.28 H (0.50-1.00) mg/dL Estimated GFR 43 L (>89) mL/min Random Glucose 108 H (74-106) mg/dL Calcium 8.5 (8.5-10.1) mg/dL Total Bilirubin 0.4 (0.2-1.0) mg/dL AST 23 (15-37) U/L ALT 29 (10-53) U/L Alkaline Phosphatase 77 (45-117) U/L Total Creatine Kinase 511 H (26-192) U/L CK-MB (CK-2) 2.0 (0.5-3.6) ng/mL CK-MB (CK-2) % 0.4 (0.0-4.0) % Troponin I (0.02-0.05) ng/mL B-Natriuretic Peptide 14 (0-100) pg/mL Total Protein 7.3 (6.4-8.2) g/dL Albumin 3.6 (3.4-5.0) g/dL Lipase (73-393) U/L ECG Data EKG Prior to Arrival: No Attestation: I personally reviewed and interpreted this ECG as follows: Prior ECG tracings: not available for review Interpretation: Normal sinus rhythm, 99 bpm, normal intervals, no evidence of any ST elevation MD pattern noted Discharge Plan Discharge Disposition Patient Disposition: 30 Still Patient Discharge Condition Condition: Stable Discharge Details Diagnosis: Chest pain, rule out acute myocardial infarction Physicians Team ED Provider: Yang Villagomez Primary Care Provider: Primary Care Joy Mendoza Rxs /Orders / Referrals /Forms Prescriptions: No Action No Known Home Medications RF: 0 Status ED Status: With Doctor
[2018-01-22 15:08] LABS: Baso % (Auto) 0.4 % (0.0-2.0); Eos # (Auto) 0.2 th/mm3 (0.0-0.4); Eos % (Auto) 2.2 % (0.0-4.0); Hematocrit 40.3 % (35.0-46.0); Hemoglobin 13.6 gm/dL (11.6-15.3); Lymph # (Auto) 1.7 th/mm3 (1.0-4.8); Lymph % (Auto) 23.8 % (9.0-44.0); Mean Corpuscular HGB Conc 33.7 % (32.0-36.0); Mean Corpuscular Hemoglobin 29.2 pg (27.0-34.0); Mean Corpuscular Volume 86.6 fL (80.0-100.0); Mean Platelet Volume 8.9 fL (7.0-11.0); Mono # (Auto) 0.7 th/mm3 (0.0-0.9); Neut # (Auto) 4.7 th/mm3 (1.8-7.7); Neut % (Auto) 64.6 % (16.0-70.0); Platelet Count 263 th/mm3 (150-450); Red Blood Count 4.66 mil/mm3 (4.00-5.30); Red Cell Distribution Width 13.5 % (11.6-17.2); White Blood Count 7.3 th/mm3 (4.0-11.0)
[2018-01-22 15:19] LABS: Alanine Aminotransferase 29 U/L (10-53); Albumin 3.6 g/dL (3.4-5.0); Anion Gap 9 meq/L (5-15); Aspartate Aminotransferase 23 U/L (15-37); Blood Urea Nitrogen 14 mg/dL (7-18); Calcium 8.5 mg/dL (8.5-10.1); Carbon Dioxide 25.5 meq/L (21.0-32.0); Chloride 110 meq/L (98-107); Glomerular Filtration Rate 43 mL/min (>89); Glucose,Random 108 mg/dL (74-106); Lipase 134 U/L (73-393); Potassium 3.4 meq/L (3.5-5.1); Sodium 144 meq/L (136-145)
[2018-01-22 15:22] LABS: Alkaline Phosphatase 77 U/L (45-117); Creatine Kinase 511 U/L (26-192); Total Protein 7.3 g/dL (6.4-8.2)
[2018-01-22 15:32] LABS: Activated Partial Thrombo Time 23.7 sec (24.3-30.1); INR 1.1 Ratio; Prothrombin Time 10.7 sec (9.8-11.6)
[2018-01-22] MEDS ORDERED: Ketorolac Inj 30 MG/ML (IVP) Vial IV.PUSH ONE (15:32)
[2018-01-22 15:41] LABS: CKMB Percent 0.4 % (0.0-4.0)
[2018-01-22] MEDS ORDERED: Morphine Inj 4 MG/ML Vial IV.PUSH PRN (18:02)
--- NOTE | 2018-01-22 18:30 | CT ---
EXAM DATE: 01/22/2018 6:17 PM EDT AGE/SEX: 57 years / Female INDICATIONS: Chest pain. CLINICAL DATA: This is the patient's initial encounter. Patient reports that signs and symptoms have been present for 1 day and indicates a pain score of 6/10. MEDICAL/SURGICAL HISTORY: Hypertension. Chronic obstructive pulmonary disease. Tubal ligation. RADIATION DOSE: 10.42 CTDI (mGy) COMPARISON: . TECHNIQUE: Volumetric scanning was performed using a multi-row detector CT scanner during bolus infu anabel of 75 ml Omnipaque 350 (iohexol) nonionic water-soluble contrast as a single exam dose. The clarence a was post processed with a variety of visualization algorithms including full volume maximum intensi ty projection and sliding thin slab reformation. Using automated exposure control and adjustment of t he mA and/or kV according to patient size, radiation dose was kept as low as reasonably achievable to obtain optimal diagnostic quality images. DICOM format image data is available electronically for r eview and comparison. FINDINGS: Pulmonary Arteries: No filling defects are seen in the pulmonary arteries out to the subsegmental ve ssels. The left and right pulmonary arteries are normal in diameter. Lung: No infiltrates seen. 3 small noncalcified pulmonary nodules. This leads to 6 mm nodules in the right middle lobe. There is a third smaller nodule in the right lower lobe measuring 1 to 2 mm in si ze. Effusion: None. Mediastinum: No evidence of mediastinal or hilar adenopathy. Other: The axilla is unremarkable. CONCLUSION: 1. No evidence of pulmonary emboli. 2. 3 small nonspecific noncalcified pulmonary nodules according to the Fleischner Society guidelines a 6-12 month follow-up CT is recommended. Electronically signed by: Refugio Mullen MD 01/22/2018 6:29 PM EDT
[2018-01-22 19:24] LABS: Creatine Kinase 429 U/L (26-192)
[2018-01-22 19:37] LABS: CKMB Percent 0.3 % (0.0-4.0); Creatine Kinase MB 1.5 ng/mL (0.5-3.6)
[2018-01-22 23:47] LABS: Creatine Kinase 443 U/L (26-192)
[2018-01-22 23:59] LABS: CKMB Percent 0.3 % (0.0-4.0); Creatine Kinase MB 1.5 ng/mL (0.5-3.6)
[2018-01-23 04:05] VITALS: O2SAT 97
--- NOTE | 2018-01-23 09:35 | P.HPCA ---
History of Present Illness Primary Care Physician: No Primary Care Physician Chief Complaint: Chest pain History of Present Illness: This is a 57-year-old female history of COPD and GERD that presents to ED via private vehicle with a complaint of developing a left arm numbness and left- sided chest discomfort that has been intermittent for 1 week. She is found nothing in particular to bring on the discomfort. States that when it occurs will last less than 1 minute. Yesterday for the first time she was short of breath with it as well as felt mildly diaphoretic. No nausea. She states that she has found that the area to be tender to touch. Denies history of CAD. States she has had a stress test in the past and upon reviewing records she had a nonischemic Mikael protocol ETT April 2016. States she was told years ago she had hypertension was on medication but states she has had no issues of blood pressure over last several years without medication for 3 or 4 years. Complains of a cough for the past week. Mostly nonproductive but occasionally yellow colored mucus will be produced. Denies fevers or chills. Denies recent travel. Lifetime non-smoker. Her brother age 47 of a myocardial infarction. Patient has had tubal ligation and bronchial washing. - Diagnosis (1) Chest pain (2) COPD (chronic obstructive pulmonary disease) Review of Systems General: Patient denies fevers, chills, and recent travel. HEENT: Patient denies headache, sore throat, difficulty swallowing. Cardiovascular: Has the chest discomfort as mentioned above. Denies sensation of heart beating rapidly or irregularly. No syncope. She was diaphoretic yesterday. Respiratory: She was short of breath yesterday. Denies inspirational chest discomfort. She has been coughing for 1 week. Occasional wheezing. Denies hemoptysis. GI: Patient denies nausea, vomiting, diarrhea, abdominal pain, bloody stools. Musculoskeletal: Patient denies joint pain or edema. Denies calf pain or edema. Neurovascular: Patient denies numbness, tingling, weakness in extremities. Denies headache. Endocrine: Denies polyuria and polydipsia. Hematologic: Denies easy bruising. Skin: Denies rash or itching. PMFSH - History History Provided By: Patient - Medical History Medical History: Medical History (Last Reviewed 01/22/18 @ 16:30 by Yang Villagomez) COPD (chronic obstructive pulmonary disease) HTN (hypertension) - Surgical History Surgical History: Surgical History (Last Reviewed 01/22/18 @ 16:30 by Yang Villagomez) H/O tubal ligation - Tobacco History Second Hand Smoke Exposure: Yes Tobacco Use In Past 30 Days: No Smoking Status: Never smoker Tobacco Type: Cigarettes - Alcohol History How Often Do You Have a Drink Containing Alcohol: Monthly or less - Substance Use History Substance History: No History of Abuse - Travel History Recent Travel in the [place] Within the Last 8 Weeks: No Recent Travel Out of the Country Within the Last 8 Weeks: No - Immunization History Tetanus Immunization: >5 Years Hx Influenza Vaccine This Season: No Medications and Allergies Active Medications: Active Medications Albuterol (Duoneb Neb (Prn)) 1 ampul NEB Q4HR NEB PRN PRN Reason: SHORTNESS OF BREATH/WHEEZING Morphine Sulfate (Morphine Inj) 2 mg IV.PUSH Q4H PRN PRN Reason: PAIN SCALE 8 TO 10 Nitroglycerin (Nitrostat Sl) 0.4 mg SL Q5M PRN PRN Reason: CHEST PAIN Sodium Chloride (Ns Flush) 2 ml IV.FLUSH UNSCH PRN PRN Reason: FLUSH AFTER USING IV ACCESS Last Admin: 01/22/18 16:00 Dose: 2 ml Sodium Chloride (Ns Flush) 2 ml IV.FLUSH BID DEANNE Last Admin: 01/23/18 01:42 Dose: 2 ml Sodium Chloride (Ns Flush) 2 ml IV.FLUSH PRN PRN PRN Reason: FLUSH AFTER USING IV ACCESS Allergies Allergy/AdvReac Type Severity Reaction Status Date / Time codeine AdvReac Severe Nausea/Vomi Verified 01/22/18 14:16 ting Home Medications Medication Instructions Recorded Confirmed Type No Known Home Medications 01/22/18 01/22/18 History Exam Vital signs: Vital Signs 01/22/18 14:16 01/22/18 14:22 01/22/18 18:31 Temperature Pulse Rate 99 H 84 Respiratory Rate 16 15 Blood Pressure 138/79 167/96 H Pulse Oximetry 98 98 99 01/22/18 19:03 01/22/18 20:00 01/23/18 00:11 Temperature 98.4 F 98.1 F Pulse Rate 80 84 Respiratory Rate 20 20 17 Blood Pressure 141/94 H 136/79 Pulse Oximetry 98 98 01/23/18 04:00 01/23/18 07:36 01/23/18 07:52 Temperature 98.2 F 98.0 F Pulse Rate 74 88 Respiratory Rate 18 16 Blood Pressure 133/82 129/89 Pulse Oximetry 97 97 97 Intake & Output 01/22/18 01/23/18 01/23/18 18:59 06:59 18:59 Weight 77.111 kg Narrative: GENERAL: This is a well-nourished, well-developed patient, in no apparent distress. Patient speaks in clear complete sentences. Patient is pleasant. HEENT: Head is atraumatic and normocephalic. Neck is supple without lymphadenopathy and trachea is midline. No JVD or carotid bruits. CARDIOVASCULAR: Regular rate and rhythm without murmurs, gallops, or rubs. RESPIRATORY: Mild wheezes at the bases that cleared after coughing. Breath sounds equal bilaterally. No rales or rhonchi. Chest wall is nontender. No use of accessory muscles. GASTROINTESTINAL: Abdomen is nontender, nondistended. Abdomen soft. No obvious pulsatile mass or bruit. No CVA tenderness. Strong femoral pulses bilaterally. Normal bowel sounds in all quadrants. MUSCULOSKELETAL: Patient is moving upper and lower extremities freely. No calf tenderness or edema, no Homans sign. Strong pulses in upper and lower extremities. NEUROLOGICAL: Patient is alert and oriented. Cranial nerves 2-12 are grossly intact. No focal deficits and speech is clear. SKIN: No rash and turgor is normal. Results 01/22/18 14:25 01/22/18 14:25 Cardiac Enzymes 01/22/18 01/22/18 01/22/18 Range/Units 14:25 14:25 14:25 AST 23 (15-37) U/L CK-MB (CK-2) 2.0 (0.5-3.6) ng/mL Troponin I Less than 0.02 L (0.02-0.05) ng/mL B-Natriuretic Peptide 14 (0-100) pg/mL 01/22/18 01/22/18 Range/Units 18:35 22:40 AST (15-37) U/L CK-MB (CK-2) 1.5 1.5 (0.5-3.6) ng/mL Troponin I Less than 0.02 L Less than 0.02 L (0.02-0.05) ng/mL B-Natriuretic Peptide (0-100) pg/mL Coagulation 01/22/18 01/22/18 Range/Units 14:25 14:25 PT 10.7 (9.8-11.6) sec APTT 23.7 L (24.3-30.1) sec B-Natriuretic Peptide 14 (0-100) pg/mL CBC 01/22/18 Range/Units 14:25 WBC 7.3 (4.0-11.0) th/mm3 RBC 4.66 (4.00-5.30) mil/mm3 Hgb 13.6 (11.6-15.3) gm/dL Hct 40.3 (35.0-46.0) % Plt Count 263 (150-450) th/mm3 Neut # (Auto) 4.7 (1.8-7.7) th/mm3 Lymph # (Auto) 1.7 (1.0-4.8) th/mm3 Cottle # (Auto) 0.7 (0.0-0.9) th/mm3 Eos # (Auto) 0.2 (0.0-0.4) th/mm3 Baso # (Auto) 0.0 (0.0-0.2) th/mm3 Comprehensive Metabolic Panel 01/22/18 Range/Units 14:25 Sodium 144 (136-145) meq/L Potassium 3.4 L (3.5-5.1) meq/L Chloride 110 H (98-107) meq/L Carbon Dioxide 25.5 (21.0-32.0) meq/L BUN 14 (7-18) mg/dL Creatinine 1.28 H (0.50-1.00) mg/dL Calcium 8.5 (8.5-10.1) mg/dL AST 23 (15-37) U/L ALT 29 (10-53) U/L Alkaline Phosphatase 77 (45-117) U/L Total Protein 7.3 (6.4-8.2) g/dL Albumin 3.6 (3.4-5.0) g/dL EKG interpretations - EKG EKG shows: sinus rhythm (EKGs are sinus rhythm without significant ST segment depressions or elevations.) Caprini VTE Risk Assessment Caprini VTE Risk Assessment: No/Low Risk (score <= 1) Caprini Risk Assessment Model: Point Value = 1 Point Value = 2 Point Value = 3 Point Value = 5 Age 41-60 Minor surgery BMI > 25 kg/m2 Swollen legs Varicose veins or History of unexplained or recurrent spontaneous Oral contraceptives or hormone replacement Sepsis (< 1 month) Serious lung disease, including pneumonia (< 1 month) Abnormal pulmonary function Acute myocardial infarction Congestive heart failure (< 1 month) History of inflammatory bowel disease Medical patient at bed rest Age 61-74 Arthroscopic surgery Major open surgery (> 45 min) Laparoscopic surgery (> 45 min) Malignancy Confined to bed (> 72 hours) Immobilizing plaster cast Central venous access Age >= 75 History of VTE Family history of VTE Factor V Leiden Prothrombin [id number] Lupus anticoagulant Anticardiolipin antibodies Elevated serum homocysteine Heparin-induced thrombocytopenia Other congenital or acquired thrombophilia Stroke (< 1 month) Elective arthroplasty Hip, pelvis, or leg fracture Acute spinal cord injury (< 1 month) Prophylaxis Regimen: Total Risk Factor Score Risk Level Prophylaxis Regimen 0-1 Low Early ambulation 2 Moderate Order ONE of the following: *Sequential Compression Device (SCD) *Heparin 5000 units SQ BID 3-4 Higher Order ONE of the following medications: *Heparin 5000 units SQ TID *Enoxaparin/Lovenox 40 mg SQ daily (WT < 150 kg, CrCl > 30 mL/min) *Enoxaparin/Lovenox 30 mg SQ daily (WT < 150 kg, CrCl > 10-29 mL/min) *Enoxaparin/Lovenox 30 mg SQ BID (WT < 150 kg, CrCl > 30 mL/min) AND/OR *Sequential Compression Device (SCD) 5 or more Highest Order ONE of the following medications: *Heparin 5000 units SQ TID (Preferred with Epidurals) *Enoxaparin/Lovenox 40 mg SQ daily (WT < 150 kg, CrCl > 30 mL/min) *Enoxaparin/Lovenox 30 mg SQ daily (WT < 150 kg, CrCl > 10-29 mL/min) *Enoxaparin/Lovenox 30 mg SQ BID (WT < 150 kg, CrCl > 30 mL/min) AND *Sequential Compression Device (SCD) Assessment and Plan - Assessment (1) Chest pain Code(s): R07.9 - Chest pain, unspecified Status: Acute (2) COPD (chronic obstructive pulmonary disease) Code(s): J44.9 - Chronic obstructive pulmonary disease, unspecified Status: Acute - Plan * Chest pain: Patient symptoms appear atypical. She has had serial cardiac enzymes and EKGs for ruling out purposes. She will be seen by Dr. Mandel cardiology in the chest pain center likely undergo a Mikael protocol ETT. She will be discharged home if her stress test is nonischemic with instructions to follow-up with PCP. Return to ED for interval issues. * COPD: Patient states she uses albuterol inhaler as needed. Patient will have as needed duo nebs while in chest pain center. Resume home medication after discharge. Patient is stable at this time. She is agreeable to this plan. H&P: Quality - VTE Deep Vein Thrombosis/Pulmonary Embolism Present on Admission: No
--- NOTE | 2018-01-23 10:42 | TR ---
Date Performed: 01/23/2018 Time Performed: 10:12:41 DOCTOR: Gus Mandel DRUG LIST: CLINICAL HISTORY: REASON FOR TEST: Chest pain REASON FOR ENDING: OBSERVATION: CONCLUSION: BRENDEN PROTOCOL. NO CP. TEST STOPPED AFTER EXCEEDING GAOL HR SEONDARY TO SOB AND LEG FATIGUE.Maximum SI=574 % Max HR Achieved=92.0% Maximum GG=756/68 Total Exercise Time=4:00 COMMENTS: Conclusion: Normal treadmill exercise. No evidence of ischemia.
--- NOTE | 2018-01-23 10:47 | ECG ---
Date Performed: 01/22/2018 Time Performed: 18:31:13 PTAGE: 57 years EKG: Sinus rhythm MARKED LEFT AXIS DEVIATION ABNORMAL ECG PREVIOUS TRACING : 01/22/2018 14.17 Since previous tracing, no significant change noted DOCTOR: Gus Mandel Interpretating Date/Time 01/23/2018 10:45:20
--- NOTE | 2018-01-23 10:48 | ECG ---
Date Performed: 01/22/2018 Time Performed: 14:17:48 PTAGE: 57 years EKG: Sinus rhythm BORDERLINE LEFT AXIS DEVIATION BORDERLINE ECG PREVIOUS TRACING : 09/08/2016 05.34 Since previous tracing, no significant change noted DOCTOR: Gsu Mandel Interpretating Date/Time 01/23/2018 10:46:07
--- NOTE | 2018-01-23 10:48 | ECG ---
Date Performed: 01/23/2018 Time Performed: 05:45:23 PTAGE: 57 years EKG: Sinus rhythm WITH SINUS ARRHYTHMIA BORDERLINE LEFT AXIS DEVIATION BORDERLINE ECG PREVIOUS TRACING : 01/22/2018 18.31 DOCTOR: Gus Mandel Interpretating Date/Time 01/23/2018 10:46:19
[2018-01-23 11:38] VITALS: BP 158/99; PULSE 95; RESP 18; TEMP 97.7
[2018-01-23] MEDS ORDERED: Acetaminophen 500 MG Tablet PO PRN (13:31)
== END 2018-01-23 14:07 | disposition home or self-care (01) ==
LOC: NEPHCDU 14:04 → NEDA 14:04 → NEPE 14:04 → NEPHCDU 19:40